=== PATIENT | female | born 1970 | race Caucasian/White ===

== ENCOUNTER → 2017-06-11 09:50 | Outpatient (CLI) | payer OTHER, SELFPAY ==
[2017-06-11 11:48] LABS: Vitamin D,25 Hydroxy 35.9 ng/mL (29.95-100.01)
[2017-06-11 12:15] LABS: Thyroid Stim Hormone (TSH) 1.02 uIU/mL (0.358-3.74)
[2017-06-17 10:22] LABS: HPV APTIMA, High Risk Negative (Negative)
== END ==
PROVIDERS: Family Provider Nurse Practitioner; PCP Nurse Practitioner; Visit Provider Nurse Practitioner Women's Health
DX: R53.83 Other fatigue (principal); Z12.4 Encounter for screening for malignant neoplasm of cervix
CPT/HCPCS: 36415; 82306; 84443; 88175; G0145

== ENCOUNTER → 2017-06-23 16:14 | Outpatient (CLI) | payer OTHER, SELFPAY ==
--- NOTE | 2017-06-23 16:38 | BI_ITS ---
MAMMOGRAPHY - BILATERAL SCREENING REASON FOR EXAM: Female, 46 years old. Routine annual screening examination. PERTINENT HISTORY: Non-contributory. TECHNIQUE: Digital bilateral breast siobhan (3D mammographic acquisition) in the CC and MLO projections. 2-D mediolateral oblique (MLO) and craniocaudad (CC) views of both breasts were obtained. CAD: Full Field Digital Mammography with Computer Added Detection was performed. COMPARISON: Comparison is made with prior study dated May 18, 2016 and October 30, 2014. FINDINGS: Breast Composition: The breasts are heterogeneously dense, which may obscure small masses. There are no dominant masses or suspicious calcifications. No other significant abnormalities are identified. There has been no significant change since the prior study. BI/SCREENING MAMM (CAD), BILAT IMPRESSION: Stable bilateral screening mammogram. Yearly follow-up mammogram recommended. (A) ASSESSMENT CATEGORY: BIRADS Category 1: Negative. A letter regarding these results will be sent to the patient by the facility within 30 days. Approximately 10% of breast cancers are not detected by mammography. A normal mammogram should not delay biopsy of a clinically suspicious abnormality. [id number] Electronically Signed: Jamal Bruce MD at 8:08 EDT Tel [phone], Service support ,
== END ==
PROVIDERS: Family Provider Nurse Practitioner; PCP Nurse Practitioner; Visit Provider Nurse Practitioner Women's Health
DX: Z12.31 Encounter for screening mammogram for malignant neoplasm of breast (principal)
CPT/HCPCS: 77063; 77067

== ENCOUNTER 2017-12-28 16:45 | Outpatient (RCR) | payer OTHER, SELFPAY ==
--- NOTE | 2017-04-07 06:42 | MASS.EVAL ---
Massage Therapy Evaluation: Evaluatoin Date:04/06/17 The patient is a 46 y.o. female, referred to [facility] by Hilary Pandya, with a diagnosis of right trapezius strain. She presents today with the symptoms of tension and aching through out the upper body, especially the shoulder and interscapular area. She reports no limitations to activities of daily living. She describes the symptoms as tension and aching. They have been present for many years and are fairly constant. She attributes the symptoms to the physical and stressful nature of her job. Her goals for treatment are to reduce muscle tension and promote relaxation. Her first treatment consisted of a one hour deep tissue massage to the full body focusing on her neck and shoulders. I found significant tension bilaterally through the upper trapezius, rhomboids and paraspinals with the left side being worse than than the right. The patient responded well to treatment with a significant decrease in muscle tension. I plan on seeing her one time a month for a total of ten one hour sessions.
--- NOTE | 2017-07-13 16:45 | DT_ITS ---
This patient was seen during an EMR downtime July 12, 2017 - July 19, 2017. This patient may have a combination of paper and electronic documentation or all paper documentation. All documentation is viewable within the e-chart portion of [facility] for each patient visit.
--- NOTE | 2018-01-27 13:04 | MASS.DISCH ---
Massage Therapy Discharge Summary: Initial Evaluation: 04/06/2017 Diagnosis: Right trapezius strain No. of Visits: Date of last visit: 12/28/2017 Goals: Decreased trapezius pain Decreased stress This patient is being discharged from our care at the [facility]. Thank you, Lyla Waller LMT
== END 2017-12-28 19:00 | disposition home or self-care (01) ==
LOC: MASS 16:45
PROVIDERS: Family Provider Nurse Practitioner; PCP Nurse Practitioner; Visit Provider Nurse Practitioner
DX: S46.811D Strain of other muscles, fascia and tendons at shoulder and upper arm level, right arm, subsequent encounter (principal)
CPT/HCPCS: 97124

== ENCOUNTER → 2018-07-06 | Outpatient (CLI) | payer OTHER, SELFPAY ==
[2018-07-01 16:14] VITALS: BMI 27.8
--- NOTE | 2018-07-06 14:14 | US_ITS ---
STUDY: ULTRASOUND OF THE FEMALE PELVIS - COMPLETE REASON FOR EXAM: Female, 47 years old. Abnormal bleeding LMP: 06/20/2018 TECHNIQUE: Transabdominal and Transvaginal TECHNICAL QUALITY: Adequate. COMPARISON: None. FINDINGS: The uterus is anteverted and is in a midline position. The uterus measures 8.8 x 6.3 x 4.3 cm. Normal uterine cervix. The endometrium measures 4 mm in thickness, and is hyperechoic. There is no demonstrated endometrial mass. There is no demonstrated myometrial mass. I.U.D. - The patient does not have an I.U.D. The right ovary is visualized. The right ovary measures 2.5 x 1.4 x 1.0 cm. There is no right ovarian cyst or ovarian mass. There is no visualized right adnexal mass or complex lesion. There is normal arterial and normal venous vascularity. The left ovary is visualized. The left ovary measures 1.6 x 2.0 x 1.5 cm. There is no left ovarian cyst or ovarian mass. There is no visualized left adnexal mass or complex lesion. There is normal arterial and normal venous vascularity. There is no fluid in the cul-de-sac. The pre void volume of the bladder was 411.7 ml. The post void volume of the bladder was less than 10 ml. US/Transvaginal Non- IMPRESSION: No suspicious sonographic findings Electronically Signed: Wade Quintero MD at 19:55 EDT , Service support ,
--- NOTE | 2018-07-06 14:14 | US_ITS ---
STUDY: ULTRASOUND OF THE FEMALE PELVIS - COMPLETE REASON FOR EXAM: Female, 47 years old. Abnormal bleeding LMP: 06/20/2018 TECHNIQUE: Transabdominal and Transvaginal TECHNICAL QUALITY: Adequate. COMPARISON: None. FINDINGS: The uterus is anteverted and is in a midline position. The uterus measures 8.8 x 6.3 x 4.3 cm. Normal uterine cervix. The endometrium measures 4 mm in thickness, and is hyperechoic. There is no demonstrated endometrial mass. There is no demonstrated myometrial mass. I.U.D. - The patient does not have an I.U.D. The right ovary is visualized. The right ovary measures 2.5 x 1.4 x 1.0 cm. There is no right ovarian cyst or ovarian mass. There is no visualized right adnexal mass or complex lesion. There is normal arterial and normal venous vascularity. The left ovary is visualized. The left ovary measures 1.6 x 2.0 x 1.5 cm. There is no left ovarian cyst or ovarian mass. There is no visualized left adnexal mass or complex lesion. There is normal arterial and normal venous vascularity. There is no fluid in the cul-de-sac. The pre void volume of the bladder was 411.7 ml. The post void volume of the bladder was less than 10 ml. US/Pelvic (Non ) IMPRESSION: No suspicious sonographic findings Electronically Signed: Wade Quintero MD at 19:55 EDT , Service support ,
== END | disposition home or self-care (01) ==
LOC: US 14:14
PROVIDERS: Family Provider Nurse Practitioner; PCP Nurse Practitioner; Referring Provider Nurse Practitioner Women's Health; Visit Provider Nurse Practitioner Women's Health
DX: N92.1 Excessive and frequent menstruation with irregular cycle (principal)
CPT/HCPCS: 76830; 76856; 93976

== ENCOUNTER → 2018-07-07 | Outpatient (CLI) | payer OTHER, SELFPAY ==
--- NOTE | 2018-07-07 | EMB_PTH ---
PATIENT: BALDOMERO HAMEED LOC: [facility] U#:[id number] AGE/SX: 47/F ROOM: RE07/07/[address]: DALTON Oliveira : 1970 BED: DIS: 07/07/2018 SPEC #: [id number] RECD: 07/07/18 16:34 STATUS: GLORIA DIANA #: [id number] GEO: 07/07/18 00:[address]: Екатерина Short NP DEPT: SURGICAL PATHOLOGY RECD BY: Abbi Catherine ENTERED: 07/08/18 16:00 SP TYPE: ENDOM BX/C FABBY DR: DALTON Crowley Tissues: Endometrium, NOS Procedures: Surgery Specimen Level IV HEADER OPERATION: Endometrial biopsy PRE-OP DIAGNOSIS: Abnormal uterine bleeding TISSUE SUBMITTED: Endometrial biopsy MICROSCOPIC DIAGNOSIS Endometrium, biopsy: Scant strips of benign superficial glandular mucosa. See comment. AM:efrain 07/11/18 COMMENT The specimen primarily consists of mucous. Clinical correlation is suggested. Rare benign endocervical mucosal-lined tissue is present. Clinical correlation is suggested. MICROSCOPIC DESCRIPTION Slides are reviewed. GROSS DESCRIPTION Received is one container labeled with the patient's name and not further designated. The specimen consists of multiple irregular fragments of light pink-delaney soft tissue that in aggregate measure 2 x 2 x 0.2 cm. The specimen is totally submitted in one cassette. / AM:efrain 07/08/18 TC:5 CPT: 85204
[2018-07-07 15:56] VITALS: BMI 27.7
== END | disposition home or self-care (01) ==
LOC: LABSPEC 16:41
PROVIDERS: Family Provider Nurse Practitioner; PCP Nurse Practitioner; Referring Provider Nurse Practitioner Women's Health; Visit Provider Nurse Practitioner Women's Health
DX: N95.9 Unspecified menopausal and perimenopausal disorder (principal)
CPT/HCPCS: 88305

== ENCOUNTER 2019-01-24 16:45 | Outpatient (RCR) | payer OTHER, SELFPAY ==
--- NOTE | 2018-04-27 06:48 | MASS.EVAL ---
Massage Therapy Evaluation: Initial Evaluation Date: 04/26/2018 /Age: 11 1970, 47 Diagnosis: Right Trapezius Strain Medications: None Goals: Decrease muscle spasms Decrease muscle tension and pain Decrease stress Assessment: Holly is an excellent candidate for massage therapy. She has had significant reduction of symptoms using massage in the past. Plan: The plan of care was reviewed with the patient she is to be seen one time per month or PRN for a total of 10 visits. Lyla Waller LMT
== END 2019-01-24 19:00 | disposition home or self-care (01) ==
LOC: MASS 16:45
PROVIDERS: Family Provider Nurse Practitioner Women's Health; PCP Nurse Practitioner Women's Health; Referring Provider Nurse Practitioner; Visit Provider Nurse Practitioner
DX: S46.811D Strain of other muscles, fascia and tendons at shoulder and upper arm level, right arm, subsequent encounter (principal)
CPT/HCPCS: 97124

== ENCOUNTER → 2019-02-24 08:47 | Outpatient (CLI) | payer OTHER, SELFPAY ==
[2019-02-24 08:13] VITALS: BMI 27.7
--- NOTE | 2019-02-24 09:00 | RAD_ITS ---
STUDY: X-RAY - CERVICAL SPINE REASON FOR EXAM: Female, 48 years old. neck pain and spasms for 6 months; no known injury TECHNIQUE: 3 view(s) of the cervical spine were obtained. COMPARISON: None FINDINGS: Normal anterior atlantoaxial articulation. Normal odontoid process. Normal cervical lordosis. Normal vertebral bodies and endplates. Normal disc space heights. Normal visualized intervertebral neuroforamina. The soft tissue structures are unremarkable. RAD/Cerv Spine 2 or 3 Views IMPRESSION: Normal x-ray examination of the visualized cervical spine. Electronically Signed: Adrian Maravilla MD at 0:01 EST , Service support ,
== END ==
PROVIDERS: PCP Internal Medicine; Referring Provider Nurse Practitioner Family; Visit Provider Nurse Practitioner Family
DX: M54.2 Cervicalgia (principal); M62.838 Other muscle spasm
CPT/HCPCS: 72040

== ENCOUNTER → 2019-08-08 08:38 | Outpatient (CLI) | payer OTHER, SELFPAY ==
[2019-08-08 08:34] VITALS: BMI 28.6
[2019-08-08 09:49] LABS: Follicle Stimulating Hormone 26.4 mIU/mL
== END ==
PROVIDERS: PCP Internal Medicine; Referring Provider Nurse Practitioner Women's Health; Visit Provider Nurse Practitioner Women's Health
DX: N95.1 Menopausal and female climacteric states (principal)
CPT/HCPCS: 36415; 83001

== ENCOUNTER 2019-10-25 11:07 | Outpatient (RCR) | payer OTHER, SELFPAY ==
[2019-09-14 15:41] VITALS: BMI 28.6
== END 2019-11-08 23:59 ==
LOC: EMPH 11:07
PROVIDERS: PCP Internal Medicine; Visit Provider Family Medicine Geriatric Medicine
DX: Z11.59 Encounter for screening for other viral diseases (principal)
CPT/HCPCS: 87635; U0003

== ENCOUNTER → 2019-12-05 12:03 | Outpatient (CLI) | payer OTHER, SELFPAY ==
[2019-08-08 08:34] VITALS: BMI 28.6
[2019-11-07 14:17] VITALS: BMI 28.6
--- NOTE | 2019-12-05 12:03 | BI_ITS ---
MAMMOGRAPHY - BILATERAL SCREENING REASON FOR EXAM: Female, 48 years old. Routine annual screening examination. PERTINENT HISTORY: Non-contributory. TECHNIQUE: Digital bilateral breast bhavna (3D mammographic acquisition) in the CC and MLO projections. 2-D mediolateral oblique (MLO) and craniocaudad (CC) views of both breasts were obtained. CAD: Full Field Digital Mammography with Computer Added Detection was performed. COMPARISON: Comparison is made with prior study dated 06/23/2017 and 05/18/2016. FINDINGS: Breast Composition: The breasts are heterogeneously dense, which may obscure small masses. There are no dominant masses or suspicious calcifications. No other significant abnormalities are identified. There has been no significant change since the prior study. BI/SCREEN MAMM (CAD) W/BHAVNA BILAT IMPRESSION: Stable bilateral screening mammogram. Yearly follow-up mammogram recommended. (A) ASSESSMENT CATEGORY: BIRADS Category 1: Negative. A letter regarding these results will be sent to the patient by the facility within 30 days. Approximately 10% of breast cancers are not detected by mammography. A normal mammogram should not delay biopsy of a clinically suspicious abnormality. [id number] Electronically Signed: Jamal Bruce, at 13:21 EDT , Service support ,
== END ==
PROVIDERS: PCP Internal Medicine; Referring Provider Nurse Practitioner Women's Health; Visit Provider Nurse Practitioner Women's Health
DX: Z12.31 Encounter for screening mammogram for malignant neoplasm of breast (principal)
CPT/HCPCS: 77063; 77067

== ENCOUNTER 2019-12-07 11:38 | Outpatient (RCR) | payer OTHER, SELFPAY ==
[2019-11-07 14:17] VITALS: BMI 28.6
== END 2019-12-09 23:59 ==
LOC: EMPH 11:38
PROVIDERS: PCP Internal Medicine; Visit Provider Family Medicine Geriatric Medicine
DX: Z03.818 Encounter for observation for suspected exposure to other biological agents ruled out (principal)
CPT/HCPCS: 87426

== ENCOUNTER 2020-01-03 10:08 | Outpatient (RCR) | payer OTHER, SELFPAY ==
[2019-11-07 14:17] VITALS: BMI 28.6
== END 2020-01-08 23:59 ==
LOC: EMPH 10:08
PROVIDERS: PCP Internal Medicine; Visit Provider Family Medicine Geriatric Medicine
DX: Z03.818 Encounter for observation for suspected exposure to other biological agents ruled out (principal)
CPT/HCPCS: 87426

== ENCOUNTER 2020-01-23 16:45 | Outpatient (RCR) | payer OTHER, SELFPAY ==
[2018-09-15 15:58] VITALS: BMI 27.7
[2019-02-24 08:13] VITALS: BMI 27.7
--- NOTE | 2019-03-15 13:29 | MASS.EVAL ---
Massage Therapy Evaluation: Initial Evaluation Date: 03/14/2019 /Age: 11 1970, 48 Diagnosis: Cervicalgia Goals: Decrease pain Decrease msucle tension Decrease stress Assessment: Holly is a good candidate for massage. We have had success treating her symptoms in the past. Plan: To be seen one time per month or PRN for a total of 10 one hour sessions.
--- NOTE | 2020-01-25 09:01 | DS.PCM_ITS ---
Massage Therapy Discharge Summary: Initial Evaluation Date: 03/14/2019 Diagnosis: Cervicalgia Muscle Spasm No. of Visits: 6 Date of last visit: 01/23/2020 This patient is being discharged from our care at the [facility]. Thank you, Lyla Waller LMT
== END 2020-01-23 19:00 | disposition home or self-care (01) ==
LOC: MASS 16:45
PROVIDERS: Family Provider Nurse Practitioner Women's Health; PCP Internal Medicine; Referring Provider Nurse Practitioner Family; Visit Provider Nurse Practitioner Family
DX: M54.2 Cervicalgia (principal); M62.838 Other muscle spasm
CPT/HCPCS: 97124

== ENCOUNTER 2020-02-07 14:09 | Outpatient (RCR) | payer OTHER, SELFPAY ==
[2019-11-07 14:17] VITALS: BMI 28.6
== END 2020-02-08 23:59 ==
LOC: EMPH 14:09
PROVIDERS: PCP Internal Medicine; Visit Provider Family Medicine Geriatric Medicine
DX: Z03.818 Encounter for observation for suspected exposure to other biological agents ruled out (principal)
CPT/HCPCS: 87426

== ENCOUNTER 2020-02-17 10:45 | Emergency (ER) | payer OTHER, SELFPAY ==
[2019-11-07 14:17] VITALS: BMI 28.6
[2020-02-17 10:45] VITALS: BP 131/78; PULSE 53; RESP 16; TEMP 36.6; O2SAT 100; BMI 27.3
--- NOTE | 2020-02-17 10:54 | RAD_ITS ---
STUDY: X-RAY - RIGHT WRIST REASON FOR EXAM: Female, 49 years old. working out and fell on wrist today, pain over radius TECHNIQUE: 3 view(s) of the wrist were obtained. COMPARISON: None. FINDINGS: Normal visualized distal radius and ulna. Normal radiocarpal articulation. Normal distal radioulnar articulation. Normal carpal bones. Normal carpal articulations. Normal carpometacarpal articulation of the thumb. Normal second through fifth carpometacarpal articulations. Normal visualized metacarpal bones. The soft tissue structures are unremarkable. RAD/Wrist min 3 Views IMPRESSION: Normal x-ray examination of the wrist. Electronically Signed: Jamaal Tomas MD at 11:15 EST Tel , Service support ,
--- NOTE | 2020-02-17 10:57 | ED.DCSUM_ITS ---
- ER Visit Summary Date of Service: 02/17/20 Chief Complaint: [Injury to right wrist] History of Present Illness: The patient is a 49 F [presents to the emergency department with an injury to the right wrist that occurred this morning. Patient states that she was exercising doing toe taps on a step when the step broke and she fell with her weight onto her right wrist. Patient is right-hand dominant. She denies any other injuries. Patient has no significant medical history. She complains of pain with movement of the wrist and she is noticed some swelling to the wrist. Patient is concerned about fracture of the wrist.] Physical Examination: [Right wrist-patient has diffuse tenderness over the dorsum of the proximal hand carpal bones with some soft tissue swelling. She is got some mild tenderness over the distal radius. She got good range of motion flexion extension of all digits. She is got good range of motion flexion extension of the wrist. No obvious deformity noted. She is neurovascular intact.] Test Results: [3 view x-rays of the right wrist obtained and interpreted by myself initially as subtle nondisplaced distal radius fracture that appears to be intra-articular. Radiology read the images as normal. I discussed with the radiologist the images and he agrees that there are some lucencies that could be consistent with an intra-articular nondisplaced fracture of the distal radius and recommended follow-up x-rays. I discussed case with orthopedics Dr. Spears who recommended a stirrup like splint around the elbow and follow-up with his office.] Emergency Department Course and Treatment: [Patient was placed in an Ortho-Glass stirrup-like splint that wrapped around the elbow to the fingers.] Treatment Plan: Patient does not anything for pain for home. She is advised use ice to the area. She will be given a sling. Patient to follow-up with orthopedics in 3 to 5 days. [] Disposition: [Discharged home in stable condition] Impression: [Right distal radius intra-articular nondisplaced fracture] This note was generated with Media[employer] software. It may contain incorrect words, spelling, and punctuation that were not noted in review of the chart prior to signing ED Disposition - Plan for ED Patient: Referrals: Berto Samson MD [Primary Care Provider] -
--- NOTE | 2020-02-17 11:41 | ED.DEP ---
ED Disposition - Plan for ED Patient: Instructions: ED Colles Fracture No Reduction ... Referrals: Berto Samson MD [Primary Care Provider] - Zander Spears DO [STAFF PHYSICIAN] - 3-5 Days
[2020-02-17 11:51] VITALS: PULSE 62; RESP 17; O2SAT 99
== END 2020-02-17 11:51 | disposition home or self-care (01) ==
LOC: ED 11:39
PROVIDERS: Emergency Provider Emergency Medicine; PCP Internal Medicine
DX: S52.571A Other intraarticular fracture of lower end of right radius, initial encounter for closed fracture (principal); W17.89XA Other fall from one level to another, initial encounter; Y93.A3 Activity, aerobic and step exercise; Y92.9 Unspecified place or not applicable
CPT/HCPCS: 29125; 73110; 99283

== ENCOUNTER → 2020-02-26 08:20 | Outpatient (CLI) | payer OTHER, SELFPAY ==
--- NOTE | 2020-02-26 08:21 | RAD_ITS ---
STUDY: X-RAY - RIGHT WRIST REASON FOR EXAM: Female, 49 years old. Radial fracture. TECHNIQUE: 3 view(s) of the wrist were obtained. COMPARISON: Right wrist, 02/17/2020. FINDINGS: There is limited visualization of the osseous structures due to semiradiopaque cast surrounding the hand and wrist. The radial fracture line is not clearly identified. There is no change in alignment. Soft tissues appear grossly normal. RAD/Wrist min 3 Views IMPRESSION: Limited visualization of the distal radial fracture secondary to artifact from surrounding semiradiopaque cast. There is no change in alignment. Electronically Signed: Iban Clayton DO at 16:54 EST Tel [phone], Service support ,
== END ==
PROVIDERS: PCP Internal Medicine; Referring Provider Orthopaedic Surgery; Visit Provider Orthopaedic Surgery
DX: S52.571A Other intraarticular fracture of lower end of right radius, initial encounter for closed fracture (principal)
CPT/HCPCS: 73110

== ENCOUNTER → 2020-03-04 11:25 | Outpatient (CLI) | payer OTHER, SELFPAY ==
--- NOTE | 2020-03-04 11:27 | RAD_ITS ---
STUDY: X-RAY - RIGHT WRIST REASON FOR EXAM: Female, 49 years old. Right wrist pain. TECHNIQUE: 3 view(s) of the wrist were obtained on 4 images. COMPARISON: 02/17/2020 FINDINGS: Oblique lucency through the distal radius on the ulnar side compatible with nondisplaced fracture. Normal distal radioulnar articulation. Normal carpal bones. Normal carpal articulations. Normal carpometacarpal articulation of the thumb. Normal second through fifth carpometacarpal articulations. Normal visualized metacarpal bones. The soft tissue structures are unremarkable. RAD/Wrist min 3 Views IMPRESSION: Stable nondisplaced fracture of the distal radius. Electronically Signed: Tam Avalos MD at 15:53 EST , Service support ,
== END ==
PROVIDERS: PCP Internal Medicine; Referring Provider Orthopaedic Surgery; Visit Provider Orthopaedic Surgery
DX: S52.501A Unspecified fracture of the lower end of right radius, initial encounter for closed fracture (principal)
CPT/HCPCS: 73110

== ENCOUNTER 2020-03-08 14:12 | Outpatient (RCR) | payer OTHER, SELFPAY ==
[2019-11-07 14:17] VITALS: BMI 28.6
== END 2020-03-10 23:59 ==
LOC: EMPH 14:12
PROVIDERS: PCP Internal Medicine; Visit Provider Family Medicine Geriatric Medicine
DX: Z03.818 Encounter for observation for suspected exposure to other biological agents ruled out (principal)
CPT/HCPCS: 87426

== ENCOUNTER → 2020-03-18 11:47 | Outpatient (CLI) | payer OTHER, SELFPAY ==
--- NOTE | 2020-03-18 11:49 | RAD_ITS ---
STUDY: X-RAY - RIGHT WRIST REASON FOR EXAM: Right distal radial fracture follow-up, right wrist pain. TECHNIQUE: 3 view(s) of the wrist were obtained. COMPARISON: Radiographs 03/04/2020. FINDINGS: There is a nondisplaced fracture of the distal radius with increased sclerosis at the fracture site. Normal radiocarpal articulation. Normal distal radioulnar articulation. Normal carpal bones. Normal carpal articulations. Normal carpometacarpal articulation of the thumb. Normal second through fifth carpometacarpal articulations. Normal visualized metacarpal bones. The soft tissue structures are unremarkable. RAD/Wrist min 3 Views IMPRESSION: Healing nondisplaced fracture of the distal radius. Electronically Signed: Bob Rosas MD at 13:35 EST Tel , Service support ,
== END ==
PROVIDERS: PCP Internal Medicine; Referring Provider Orthopaedic Surgery; Visit Provider Orthopaedic Surgery
DX: S52.501A Unspecified fracture of the lower end of right radius, initial encounter for closed fracture (principal)
CPT/HCPCS: 73110

== ENCOUNTER → 2020-04-01 12:01 | Outpatient (CLI) | payer OTHER, SELFPAY ==
--- NOTE | 2020-04-01 12:02 | RAD_ITS ---
STUDY: X-RAY - RIGHT WRIST REASON FOR EXAM: Follow-up right wrist fracture. TECHNIQUE: 3 view(s) of the wrist were obtained. COMPARISON: Radiographs 03/18/2020. FINDINGS: There is a healed fracture of the distal radius. Normal radiocarpal articulation. Normal distal radioulnar articulation. Normal carpal bones. Normal carpal articulations. Normal carpometacarpal articulation of the thumb. Normal second through fifth carpometacarpal articulations. Normal visualized metacarpal bones. The soft tissue structures are unremarkable. RAD/Wrist min 3 Views IMPRESSION: Healed fracture of the distal radius. Electronically Signed: Bob Rosas MD at 12:48 EST Tel , Service support ,
== END ==
PROVIDERS: PCP Internal Medicine; Referring Provider Orthopaedic Surgery; Visit Provider Orthopaedic Surgery
DX: S52.591D Other fractures of lower end of right radius, subsequent encounter for closed fracture with routine healing (principal)
CPT/HCPCS: 73110

== ENCOUNTER 2020-04-05 09:43 | Outpatient (RCR) | payer OTHER, SELFPAY | END 2020-04-07 23:59 | LOC: EMPH 09:43 | PROVIDERS: PCP Internal Medicine; Referring Provider Family Medicine Geriatric Medicine; Visit Provider Family Medicine Geriatric Medicine | DX: Z03.818 Encounter for observation for suspected exposure to other biological agents ruled out (principal) | CPT/HCPCS: 87426 ==

== ENCOUNTER 2020-04-16 16:00 | Outpatient (RCR) | payer OTHER, SELFPAY ==
[2019-11-07 14:17] VITALS: BMI 28.6
--- NOTE | 2020-04-09 13:42 | HP.OTEVAL ---
Patient's Visit Information BALDOMERO HAMEED is a 49 year old F, referred to Occupational Therapy by Dr. Zander Spears DO, with a diagnosis of Lower end right radius fx. Date of Evaluation: 04/09/20 Occupational Therapist: Aliya Roberson, ALESSANDRA/Minnie, CHT - Subjective This 49 year old female was seen for OT eval with dx of right lower end radius fx. Pt states a step broke and she fell on an out streched hand- states thumb hurt more than wrist- pt states this happened on 02/17/20 and she was casted until on 04/01/20. pt states her wrist is feeling stiff but skin and hand is very sensitive. pt would like to return to her PLOF with ADls and IADls and return to work. - Pain right wrist 1 Pain Intensity Range: 6 - ROM Wrist: right 50/ 25 left 80/75 CMC: right 5 left 15 MP: right 50 left 65 IP: right 60 left 80 Opposition: right 7 left 10 - Strength Molded Goods Controls Operator: right 15# left 65# Lateral Pinch: rigth 6# left 12# Tripod Pinch: right 8# left 16# - Sensation Thumb: right 2.36 left 2.83 Index: right 2.36 left 2.83 Middle: right 2.36 left 2.83 Ring: right 2.36 left 2.83 Little: right 2.36 left 2.83 - Quick DASH-Disab of Arm,Shoulder& Hand Quick DASH Score: 70.0000 - Hand/Wrist Evaluation Total Score of Pain & Functional Sections: 58 - Goals Goal:: pt will demo a increase in right manager concrete strength to 50# or greater to increase pts ind with ADls and IADls by d/c. pt will demo a increase in right lateral and tripod pinch by 4# to increase pts ind with ADLs and IADLs by d/c Goal:: pt will demo right wrist ROM 70/65 or greater to return pt to PLOF and ind. with ADLS and IADLs by d/c Goal:: pt will report a decrease in right wirst pain no greater than 1/10 with use of right hand with ADLs and IADLs Goal:: pt will demo a reduction in monofilament testing to 2.83 indicating normal sensation by d/c. pt will report the ability to marysol. long sleeves to ind. wear clothing by d.c - Rehabilitation General Assessment: pt currently 7 weeks and 2 days from a right lwer end radius fx. pt had cast removed on 04/01/20 and currently demo with limited right wrist ROM, strength and hypersensitivity of right hand. This limits pts IND. with ADls and IADLs. Pt would benefit from skilled OT services 1-2x week for 6 weeks to return pt to PLOF. Today therapist ed. pt on light PROM of wrist flex/ext and sensory re-ed/ desensitization. pt demo understanding and agree to POC. Rehabilitation Potential: Good - Anticipated Interventions A/AAROM/PROM, Strengthening, Triggerpoint Release, Desensitization, Sensory Retraining, Modalities, Orthoses, Joint Protection/Energy Conservation, Ergonomic Education - Visit Plan Frequency: 1-2x /Week Duration: 6 Weeks General Plan: adding in Wt.B as tolerated. texture differances between bilateral hands TEXT: Thank you for the opportunity to evaluate your patient. For Medicare and Medicare HMO plans, please review the plan of care and approve it. It will need to be FAXED BACK to us at [phone] for Medicare purposes. Please let me know if there are questions or concerns regarding this plan of care. Physician Signature: Date:
--- NOTE | 2020-09-30 12:17 | HP.OTDCSUM_ITS ---
It has been my pleasure to treat BALDOMERO HAEMED under orders from Dr. Zander Spears DO, for the diagnosis of Lower end right radius fx for a total of 2 visit(s). Please see the following information for a summary of their discharge status. Patient Goals: Regain Mobility, Regain Strength, Use Hand/Wrist/Arm Normally Again, Decrease Sensitivity Goal:: pt will demo a increase in right funding analyst strength to 50# or greater to increase pts ind with ADls and IADls by d/c. pt will demo a increase in right lateral and tripod pinch by 4# to increase pts ind with ADLs and IADLs by d/c Goal:: pt will demo right wrist ROM 70/65 or greater to return pt to PLOF and ind. with ADLS and IADLs by d/c Goal:: pt will report a decrease in right wirst pain no greater than 1/10 with use of right hand with ADLs and IADLs Goal:: pt will demo a reduction in monofilament testing to 2.83 indicating normal sensation by d/c. pt will report the ability to marysol. long sleeves to ind. wear clothing by d.c Plan: cont with trigger point. may try US. traction If there are questions or concerns regarding this patient's occupational therapy, please fell free to call me at [phone]. Thank you for the referral of this patient. Sincerely, Aliya Roberson, OTR/L, CHT
== END 2020-04-16 19:00 | disposition home or self-care (01) ==
LOC: OT 16:00
PROVIDERS: PCP Internal Medicine; Referring Provider Orthopaedic Surgery; Visit Provider Orthopaedic Surgery
DX: S52.501D Unspecified fracture of the lower end of right radius, subsequent encounter for closed fracture with routine healing (principal)
CPT/HCPCS: 97140; 97165; 97166

== ENCOUNTER 2020-05-01 09:41 | Outpatient (RCR) | payer OTHER, SELFPAY ==
[2019-11-07 14:17] VITALS: BMI 28.6
== END 2020-05-08 23:59 ==
LOC: EMPH 09:41
PROVIDERS: PCP Internal Medicine; Referring Provider Family Medicine Geriatric Medicine; Visit Provider Family Medicine Geriatric Medicine
DX: Z03.818 Encounter for observation for suspected exposure to other biological agents ruled out (principal)
CPT/HCPCS: 87426

== ENCOUNTER → 2020-05-22 17:31 | Outpatient (CLI) | payer OTHER, SELFPAY ==
[2020-05-09 15:29] VITALS: BMI 28.9
--- NOTE | 2020-05-22 17:10 | CT_ITS ---
STUDY: CT SOFT TISSUE NECK WITH CONTRAST REASON FOR EXAM: Female, 49 years old. Right sided neck swelling RADIATION DOSAGE (If Supplied By Facility): CTDIvol = ( 17.32 ) mGy, DLP = ( 571.06 ) mGycm TECHNIQUE: The patient was scanned in a multi-detector CT scanner. High resolution transaxial imaging was performed following intravenous administration of IV 100mL Isovue-300. Sagittal and coronal images were reconstructed. Individualized dose optimization techniques were used for this CT. COMPARISON: None. FINDINGS: Normal bilateral parotid glands. Normal bilateral muck miner blasting spaces. Normal bilateral parapharyngeal spaces. Normal bilateral carotid spaces. Normal bilateral sublingual and submandibular glands and spaces. Normal visualized nasopharynx. Normal retropharyngeal space. Normal perivertebral space. Normal visualized bilateral faucial tonsils. The visualized tongue, tongue base and oropharynx are normal. The visualized cervical lymph nodes (levels I-) are within normal size limits, and maintain normal morphology. There is no demonstrated solid or cystic mass lesion. There is no abnormal contrast enhancement. Normal epiglottis, bilateral vallecula and hypopharynx. The pre-epiglottic and paraglottic adipose spaces are normal. Normal visualized bilateral piriform sinuses, aryepiglottic folds, vocal cords, and arytenoid-cricoid articulations. Normal subglottic trachea. Normal bilateral lobes of the thyroid gland. Normal visualized pulmonary apices. Normal visualized paranasal sinuses. Normal visualized cervical spine. CT/Soft Tissue Neck WITH Contrast IMPRESSION: Normal enhanced CT examination of the soft tissues of the neck. Electronically Signed: Jamaal Tomas MD at 9:55 EDT Tel , Service support ,
== END ==
PROVIDERS: PCP Internal Medicine; Referring Provider Internal Medicine; Visit Provider Internal Medicine
DX: R22.1 Localized swelling, mass and lump, neck (principal)
CPT/HCPCS: 70491; Q9967; A4216

== ENCOUNTER 2020-06-07 09:48 | Outpatient (RCR) | payer OTHER, SELFPAY ==
[2020-05-09 15:29] VITALS: BMI 28.9
== END 2020-06-07 23:59 ==
LOC: EMPH 09:48
PROVIDERS: PCP Internal Medicine; Referring Provider Family Medicine Geriatric Medicine; Visit Provider Family Medicine Geriatric Medicine
DX: Z03.818 Encounter for observation for suspected exposure to other biological agents ruled out (principal)
CPT/HCPCS: 87426

== ENCOUNTER → 2020-06-13 | Outpatient (CLI) | payer OTHER, SELFPAY ==
[2020-06-13 12:50] VITALS: BMI 27.7
--- NOTE | 2020-06-13 13:00 | LES_PTH ---
PATIENT: BALDOMERO HAMEED LOC: [facility] U#:[id number] AGE/SX: 49/F ROOM: RE06/13/[address]: Dr. Parker Dumont MD : 1970 BED: DIS: 06/13/2020 SPEC #: [id number] RECD: 06/13/20 14:28 STATUS: GLORIA REQ #: [id number] GEO: 06/13/20 13:[address]: Parker Dumont DEPT: SURGICAL PATHOLOGY RECD BY: Nena Vilchis ENTERED: 06/14/20 09:50 SP TYPE: Lesion OTHR DR: Dr. Berto Samson MD Tissues: Clavicle, NOS Procedures: Surgery Specimen Level III HEADER OPERATION: Excision right clavicular mass PRE-OP DIAGNOSIS: Right clavicular mass TISSUE SUBMITTED: Right clavicular mass MICROSCOPIC DIAGNOSIS Right clavicular mass, excision: Mature adipose tissue, consistent with lipoma. SJ:efrain 06/17/2020 MICROSCOPIC DESCRIPTION Slides are reviewed. GROSS DESCRIPTION Received in fixative is one container labeled with the patient's name and designated right clavicular mass. The specimen consists of an irregular piece of adipose tissue measuring 5 x 4 x 2 cm. The external surface is inked. Sections reveal yellow adipose cut surfaces without areas of hemorrhage, necrosis or cystic degeneration. Ethanol Maintenance Mechanic sections are submitted in three cassettes. / MIKEY:efrain 06/14/20 TC:1 CPT: 27730
== END | disposition home or self-care (01) ==
LOC: LABSPEC 14:36
PROVIDERS: PCP Internal Medicine; Referring Provider Surgery; Visit Provider Surgery
DX: R22.2 Localized swelling, mass and lump, trunk (principal)
CPT/HCPCS: 88304

== ENCOUNTER 2020-08-06 11:33 | Outpatient (RCR) | payer OTHER, SELFPAY ==
[2020-05-28 15:28] VITALS: BMI 27.7
[2020-06-13 12:50] VITALS: BMI 27.7
== END 2020-08-07 23:59 ==
LOC: EMPH 11:33
PROVIDERS: PCP Internal Medicine; Referring Provider Family Medicine Geriatric Medicine; Visit Provider Family Medicine Geriatric Medicine
DX: Z03.818 Encounter for observation for suspected exposure to other biological agents ruled out (principal)
CPT/HCPCS: 87426

== ENCOUNTER → 2020-09-02 07:28 | Outpatient (CLI) | payer OTHER, SELFPAY ==
[2020-08-29 15:35] VITALS: BMI 27.7
[2020-09-02 08:50] LABS: Vitamin D,25 Hydroxy 74.3 ng/mL
[2020-09-02 08:59] LABS: Thyroid Stim Hormone (TSH) 1.43 uIU/mL (0.358-3.74)
== END ==
PROVIDERS: PCP Internal Medicine; Referring Provider Nurse Practitioner Women's Health; Visit Provider Nurse Practitioner Women's Health
DX: L65.9 Nonscarring hair loss, unspecified (principal); Z13.29 Encounter for screening for other suspected endocrine disorder; Z13.21 Encounter for screening for nutritional disorder
CPT/HCPCS: 36415; 82306; 84443

== ENCOUNTER 2020-10-08 08:20 | Outpatient (RCR) | payer OTHER, SELFPAY ==
[2020-06-13 12:50] VITALS: BMI 27.7
== END 2020-10-08 23:59 ==
LOC: EMPH 08:20
PROVIDERS: PCP Internal Medicine; Referring Provider Family Medicine Geriatric Medicine; Visit Provider Family Medicine Geriatric Medicine
DX: Z03.818 Encounter for observation for suspected exposure to other biological agents ruled out (principal)
CPT/HCPCS: 87426

== ENCOUNTER 2020-10-21 09:30 | Outpatient (RCR) | payer OTHER, SELFPAY ==
[2020-10-09 00:14] VITALS: BMI 27.7
== END 2020-11-07 23:59 ==
LOC: EMPH 09:30
PROVIDERS: PCP Internal Medicine; Referring Provider Family Medicine Geriatric Medicine; Visit Provider Family Medicine Geriatric Medicine
DX: Z03.818 Encounter for observation for suspected exposure to other biological agents ruled out (principal)
CPT/HCPCS: 87426

== ENCOUNTER 2020-12-10 14:48 | Outpatient (RCR) | payer OTHER, SELFPAY | END 2021-01-07 23:59 | LOC: EMPH 14:48 | PROVIDERS: PCP Internal Medicine; Referring Provider Family Medicine Geriatric Medicine; Visit Provider Family Medicine Geriatric Medicine | DX: Z03.818 Encounter for observation for suspected exposure to other biological agents ruled out (principal) | CPT/HCPCS: 87426 ==

== ENCOUNTER → 2020-12-31 15:25 | Outpatient (CLI) | payer OTHER, SELFPAY ==
--- NOTE | 2020-12-31 15:56 | MRI_ITS ---
MR Pelvis Female WO/W Contrast Indication: 50 years old Female presenting with URETHRAL DIVERTICULUM. Technique: MR of the pelvis without and with IV contrast. Field Strength: 1.5 Kelsey. Contrast: A total of 16 cc IV Dotarem gadolinium is administered for the study. Comparison: None. Findings: Soft tissues of the pelvis are normal. There is no urethral diverticulum. However, please note that a diverticulum that has emptied out of fluid and collapsed would not be detectable on a static exam. There are no periurethral lesions. Bladder neck and bladder are normal. Vagina, rectum, cervix are normal. Uterus is suboptimally imaged. There is a probable 2.5 cm left ovarian unerupted or hemorrhagic follicle. MRI/Pelvis W/WO Contrast IMPRESSION: 1. Unremarkable female pelvis. 2. No distended urethral diverticulum. An empty collapsed diverticulum is not likely to be seen with MR. Electronically Signed: Lakshmi Flynn MD at 22:21 EST Tel , Service support ,
== END ==
PROVIDERS: PCP Internal Medicine; Visit Provider Urology
DX: N36.1 Urethral diverticulum (principal)
CPT/HCPCS: 72197; A9575

== ENCOUNTER 2021-02-04 16:30 | Outpatient (RCR) | payer OTHER, SELFPAY ==
[2019-11-07 14:17] VITALS: BMI 28.6
--- NOTE | 2020-03-28 15:39 | MASS.EVAL ---
Massage Therapy Evaluation: Initial Evaluation Date: 03/28/2020 /Age: 11 1970, 49 Diagnosis: Cervicalgia Goals: Decrease muscle tension Decrease stress Assessment: Holly is a good candidate for massage at this time. We have had success treating her symptoms in the past. Plan: To be seen one time per month or PRN for a total of 10 one hour sessions.
--- NOTE | 2021-02-04 17:38 | DS.PCM_ITS ---
Massage Therapy Discharge Summary: Initial Evaluation Date: 03/28/20 Diagnosis: Cervicalgia No. of Visits: 9 Date of last visit: 02/04/21 This patient is being discharged from our care at the [facility]. Thank you, Lyla Waller LMT
== END 2021-02-04 19:00 | disposition home or self-care (01) ==
LOC: MASS 16:30
PROVIDERS: PCP Internal Medicine; Referring Provider Nurse Practitioner Family; Visit Provider Nurse Practitioner Family
DX: M54.2 Cervicalgia (principal)
CPT/HCPCS: 87426; 97124

== ENCOUNTER 2021-02-06 10:13 | Outpatient (RCR) | payer OTHER, SELFPAY | END 2021-02-07 23:59 | LOC: EMPH 10:13 | PROVIDERS: PCP Internal Medicine; Referring Provider Family Medicine Geriatric Medicine; Visit Provider Family Medicine Geriatric Medicine | DX: Z03.818 Encounter for observation for suspected exposure to other biological agents ruled out (principal) | CPT/HCPCS: 87426; 87635; U0003; U0005 ==

== ENCOUNTER 2021-03-03 15:00 | Outpatient (CLI) | payer OTHER, SELFPAY ==
[2021-03-03 12:02] LABS: Absolute Lymphocyte Count 1.91 X10^3/uL (0.83-4.51); Absolute Neutrophil Count 3.4 X10^3/uL (2.0-7.7); Basophil# 0.06 X10^3/uL; Eosinophil# 0.15 X10^3/uL; Eosinophils% 2.6 % (0-5); Hematocrit 38.1 % (37-47); Hemoglobin 12.6 g/dL (12.0-15.0); Lymphocyte # 1.91 X10^3/ul (0.83-4.51); Lymphocyte % 32.6 % (19-41); Mean Corp Hgb Conc 33.1 g/dL (32-36); Mean Corpuscular Hgb 30.4 pg (27.0-32.0); Mean Platelet Vol. 10.2 fl (6.2-12.0); Monocyte# 0.31 X10^3/uL; Monocyte% 5.3 % (0-10); NRBC Flagged by Analyzer 0 % (0-5); Neutrophil # 3.41 X10^3/uL (2.7-7.7); Neutrophil % 58.2 % (47-70); Platelet Count 252 K/mm3 (150-450); RBC Distribution Width CV 12.7 % (11.6-14.6); Red Blood Count 4.14 M/mm3 (4.2-5.4); White Blood Count 5.9 K/mm3 (4.4-11.0)
[2021-03-03 12:39] LABS: Progesterone Level 0.31 ng/mL (See Comment); Vitamin B12 846 pg/mL (211-911)
[2021-03-03 13:20] LABS: ALB/GLOB Ratio 1.1 RATIO (0.9-2.4); AST(SGOT) 20 U/L (15-37); Alanine Aminotransfer ALT/SGPT 28 U/L (13-56); Albumin, Serum 3.6 g/dL (3.2-5.0); Alkaline Phosphatase 77 U/L (45-117); Anion Gap 6 (5-15); BUN 10 mg/dL (7-18); BUN/Creat Ratio 14.9 RATIO (10-20); Calcium,Total 8.9 mg/dL (8.5-10.1); Chloride 105 mmol/L (98-107); Creatinine, Serum 0.67 mg/dL (0.55-1.02); EST Glomerular Filtration Rate 98 mL/min (>60); Est Glom Filt Rate - Afr Amer 119 mL/min (>60); Estradiol < 11.0 pg/mL; Free T3 2.6 pg/mL (2.18-3.98); Globulin 3.4 g/dL (2.2-4.2); Glucose 87 mg/dL (74-106); Potassium 3.7 mmol/L (3.5-5.1); Sodium Level 139 mmol/L (136-145); Thyroid Stim Hormone (TSH) 1.14 uIU/mL (0.358-3.74)
--- NOTE | 2021-03-03 15:06 | BI_ITS ---
MAMMOGRAPHY - BILATERAL SCREENING REASON FOR EXAM: Female, 50 years old. Routine annual screening examination. PERTINENT HISTORY: Non-contributory. TECHNIQUE: Digital bilateral breast bhavna (3D mammographic acquisition) in the CC and MLO projections. 2-D mediolateral oblique (MLO) and craniocaudad (CC) views of both breasts were obtained. CAD: Full Field Digital Mammography with Computer Added Detection was performed. COMPARISON: Comparison is made with prior study dated 12/05/2019. FINDINGS: Breast Composition: The breasts are heterogeneously dense, which may obscure small masses. There are no dominant masses or suspicious calcifications. No other significant abnormalities are identified. There has been no significant change since the prior study. BI/SCRN MAMM (CAD)W/BHAVNA BILAT IMPRESSION: Stable bilateral screening mammogram. Yearly follow-up mammogram recommended. (A) ASSESSMENT CATEGORY: BIRADS Category 1: Negative. A letter regarding these results will be sent to the patient by the facility within 30 days. Approximately 10% of breast cancers are not detected by mammography. A normal mammogram should not delay biopsy of a clinically suspicious abnormality. [id number] Electronically Signed: Jamal Bruce MD at 20:30 EST , Service support ,
[2021-03-04 09:24] LABS: DHEA Sulfate 59.1 ug/dL (41.2-243.7)
== END 2021-03-03 23:59 | disposition short-term general hospital (02) ==
PROVIDERS: Specialist; PCP Internal Medicine; Referring Provider Physician Assistant; Visit Provider Physician Assistant
DX: Z12.31 Encounter for screening mammogram for malignant neoplasm of breast (principal); R53.83 Other fatigue; N95.1 Menopausal and female climacteric states; E55.9 Vitamin D deficiency, unspecified
CPT/HCPCS: 36415; 77063; 77067; 80053; 82306; 82607; 82627; 82670; 84144; 84403; 84443; 84481; 85025; 82626

== ENCOUNTER 2021-03-10 08:41 | Outpatient (RCR) | payer OTHER, SELFPAY | END 2021-03-10 23:59 | LOC: EMPH 08:41 | PROVIDERS: PCP Internal Medicine; Referring Provider Family Medicine Geriatric Medicine; Visit Provider Family Medicine Geriatric Medicine | DX: Z03.818 Encounter for observation for suspected exposure to other biological agents ruled out (principal) | CPT/HCPCS: 87426 ==

== ENCOUNTER 2021-04-07 08:36 | Outpatient (RCR) | payer OTHER, SELFPAY | END 2021-04-07 23:59 | LOC: EMPH 08:36 | PROVIDERS: PCP Internal Medicine; Referring Provider Family Medicine Geriatric Medicine; Visit Provider Family Medicine Geriatric Medicine | DX: Z03.818 Encounter for observation for suspected exposure to other biological agents ruled out (principal) | CPT/HCPCS: 87426 ==

== ENCOUNTER 2021-04-08 07:25 | Day surgery (SDC) | payer OTHER, SELFPAY ==
--- NOTE | 2021-04-08 | CYST_PTH ---
PATIENT: BALDOMERO HAMEED LOC: [facility] [place] U#:[id number] AGE/SX: 50/F ROOM: RE04/08/[address]: Dr. Virginia Caba MD : 1970 BED: DIS: 04/08/2021 SPEC #: [id number] RECD: 04/08/21 10:59 STATUS: GLORIA ORTIZ #: [id number] GEO: 04/08/21 00:[address]: Virginia Caba DEPT: SURGICAL PATHOLOGY RECD BY: Paddy Prado ENTERED: 04/08/21 11:00 SP TYPE: Cyst OTHR DR: Dr. Berto Samson MD Tissues: CYST Procedures: Surgery Specimen Level IV HEADER OPERATION: Excision periurethral cyst PRE-OP DIAGNOSIS: Urethral diverticulum, periurethral cyst TISSUE SUBMITTED: Periurethral cyst MICROSCOPIC DIAGNOSIS Periurethral cyst, biopsy: Benign squamous mucosa with associated minimal chronic inflammation. See comment. AM:efrain 04/09/2021 COMMENT The specimen may represent urethral diverticulum/periurethral cyst. Clinical correlation is suggested. Case has been reviewed in consultation with Dr. Gonzalez who concurs with the above diagnosis. IDC:[email or web address] MICROSCOPIC DESCRIPTION Slides are reviewed. GROSS DESCRIPTION Received in fixative is one container labeled with the patient's name and designated periurethral cyst. The specimen consists of a piece of delaney soft tissue measuring 1.2 x 1 x 0.2 cm. The specimen is serially sectioned and submitted entirely in one cassette. / SJ:efrain 04/08/2021 TC:5 CPT: 99006
[2021-04-08 07:53] VITALS: BP 110/72; PULSE 59; RESP 16; TEMP 36.8; O2SAT 100; BMI 27.0
[2021-04-08] MEDS: Lactated Ringers 1,000 ML 15 ML IV (08:01)
[2021-04-08 08:11] LABS: Internal QC Validated? YES +Cl - CLEAR BKGD; Pregnancy, Urine Negative Negative
--- NOTE | 2021-04-08 08:21 | PCM.HP.STD ---
HPI - General HPI Narrative BALDOMERO HAMEED, is a 50 F who presents for excision of a periurethral cyst/urethral diverticulum. [facility] Medical History (Updated 04/08/21 @ 08:[address] Virginia Caba MD) Back pain Bilateral headaches Bladder prolapse Bladder prolapse, female, acquired History of echocardiogram History of stress test Lipoma Migraine headache Other fractures of lower end of right radius, sequela Shortness of breath on exertion subcutaneous mass right clavicular region Urethral diverticulum Wears glasses Home Medications multivitamin 1 tab PO QDAY 06/11/17 [History Last Taken Unknown] calcium carbonate 600 mg calcium (1,500 mg) tablet 600 mg PO DAILY tab 07/06/18 [History Last Taken Unknown] cholecalciferol (vitamin D3) 50 mcg (2,000 unit) capsule 2,000 unit PO DAILY 07/06/18 [History Last Taken Unknown] ibuprofen 600 mg tablet 600 mg PO TID PRN #42 tab 04/10/20 [Rx Last Taken Unknown] Accuqity 1 tab PO DAILY 04/24/20 [History Last Taken Unknown] glucosamine sulfate 500 mg tablet 500 mg PO DAILY 04/24/20 [History Last Taken Unknown] Lactobacillus acidophilus [Probiotic] 10,000 mmu cells PO DAILY 04/04/21 [History Last Taken Unknown] magnesium 250 mg PO DAILY 04/04/21 [History Last Taken Unknown] omega-3 fatty acids [Fish Oil] 1,000 mg PO DAILY 04/04/21 [History Last Taken Unknown] Allergy/AdvReac Type Severity Reaction Status Date / Time cefadroxil Allergy Severe rash Verified 04/08/21 07:52 Penicillins Allergy Severe rash Verified 04/08/21 07:52 Family History Mother Diabetes Hypertension Grandfather CVA (cerebral vascular accident) Diabetes Hypertension Other Alcoholism in family Anxiety Arthritis Heart disease Hyperlipidemia Osteoporosis Surgical History History of wisdom tooth extraction S/P dilation and curettage S/P foot surgery, left Social History Smoking Status: Never smoker alcohol intake: current alcohol intake frequency: holidays/special occasions only substance use type: does not use caffeine: Yes (twice a week) what type of physical activity do you participate in: running, swimming and yoga frequency: 5-6 times per week seatbelt use: always do you feel safe at home: Yes 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 Constitutional Constitutional: Denies chills, fatigue, fever(s), weight gain or weight loss Eyes Eyes: Denies change in vision ENT HEENT: Denies change in voice, rhinorrhea or sinus pain Cardiovascular Cardiovascular: Denies chest pain, dizziness, dyspnea, fatigue, nausea, tachypnea or vomiting Respiratory/Chest Respiratory/Chest: Denies chest congestion, cough or dyspnea Gastrointestinal Gastrointestinal: Denies abdominal pain, nausea or vomiting Genitourinary Genitourinary: Denies dysuria, flank pain, hematuria, itching, urinary frequency or urinary hesitancy Musculoskeletal Musculoskeletal: Reports systems reviewed and no addt'l complaints, except as documented Integumentary Integumentary: Reports systems reviewed and no addt'l complaints, except as documented Neurologic Neurologic: Reports systems reviewed and no addt'l complaints, except as documented Psychiatric Psychiatric: Reports systems reviewed and no addt'l complaints, except as documented Endocrine Endocrinology: Reports systems reviewed and no addt'l complaints, except as documented Hematologic/Lymphatic Hematologic/Lymphatic: Reports systems reviewed and no addt'l complaints, except as documented Allergic/Immunologic Allergic/Immunologic: Reports systems reviewed and no addt'l complaints, except as documented Vital Signs Vital Signs Vital Signs: 04/08/21 07:53 Temperature 98.3 F Temperature Source Temporal Pulse Rate 59 L Respiratory Rate 16 Respiratory Pattern Normal Blood Pressure 110/72 Blood Pressure Mean 84 Blood Pressure Source Monitor Blood Pressure Position Semi-Fowlers Blood Pressure Location Left Arm Pulse Ox 100 Oxygen Delivery Method Room Air Weight Weight: 76 kg Body Mass Index (BMI) 27.0 Physical Exam HEENT normocephalic, head/scalp atraumatic, hearing grossly normal bilaterally, external ears normal and external nose normal Mouth: lips normal Eyes conjunctivae normal and no scleral icterus General Eye: normal appearance of both eyes Neck supple General: trachea midline Lymph Lymphatic: no lymphedema noted Chest inspection of chest normal Chest: symmetrical chest wall rise Resp normal respiratory effort, normal air movement, no retractions and no use of accessory muscles Effort and Inspection: able to speak in complete sentences and symmetric chest movement Cardio regular rate and regular rhythm GI soft to palpation, non-tender and non-distended no CVA tenderness and external exam normal Back/Spine no CVA tenderness Extremity normal to inspection Skin no rashes or lesions noted, no wounds, skin turgor normal, no jaundice, no petechiae and no mottling Neuro oriented x3, CN's II-XII intact bilaterally and moves all extremities Psych mental status grossly normal, thought process normal, cooperative, affect normal and speech normal Results Lab / Micro Data Labs: Laboratory Results - last 24 hr 04/08/21 08:01: Urine Test Negative Assessment & Plan Assessment/Plan (1) Urethral diverticulum: PLAN: Excision of urethral diverticulum with cystoscopy. Informed consent obtained.
[2021-04-08] MEDS: Lidocaine 1% /Epi 1:100 (50ml) 50 ML VIAL (08:26)
--- NOTE | 2021-04-08 08:27 | DCINST_ITS ---
Discharge Instructions Diet Discharge Diet: No restrictions Activity Discharge Activity: May Drive (When not using pain medication) and May Shower May resume sexual activity in: 4-6 weeks Additional Activity Instructions:: No strenuous activity, no tub bathing, no swimming, no hot tubs, no sexual activity Dressing / Incision Call your doctor if your incision/area has: Continuous Slow Oozing, Sudden Increased Bleeding, Increased Pain/ Swelling and Foul Smelling Discharge Call your doctor if you observe: Fever of 101 or Higher, Inability to urinate a nd Inability to have a bowel movement Follow Up Care Please Follow Up With: Virginia Caba MD When: In 2 weeks, call the office for an appointment Test Results: Test results from this visit will be discussed in further detail at your follow-up appointment, if applicable. Discharge Plan Admission Attending Provider: Virginia Caba Primary Care Provider: Berto Samson Discharge Orders/Prescriptions Prescriptions: New oxycodone-acetaminophen [oxycodone-acetaminophen] 1 TABLET tablet 2 tab PO Q8H PRN PRN (Reason: Pain) 7 Days Qty: 20 RF: 0 phenazopyridine [Pyridium] 200 MG tablet 200 mg PO TID PRN PRN (Reason: Bladder Spasms) 7 Days Qty: 30 RF: 0 sulfamethoxazole-trimethoprim [sulfamethoxazole-trimethoprim] 1 TABLET tablet 1 tab PO BID 3 Days Qty: 6 RF: 0 Continued multivitamin tablet 1 tab PO QDAY RF: 0 cholecalciferol (vitamin D3) 2,000 unit capsule 2,000 unit PO DAILY RF: 0 calcium carbonate [Calcium 600] 600 mg calcium (1,500 mg) tablet 600 mg PO DAILY RF: 0 Accuqity 1 tab PO DAILY RF: 0 glucosamine sulfate [Glucosamine] 500 mg tablet 500 mg PO DAILY RF: 0 magnesium 250 mg Tablet 250 mg PO DAILY RF: 0 omega-3 fatty acids Capsule 1,000 mg PO DAILY RF: 0 Probiotic 10 billion cell Capsule 10,000 mmu cells PO DAILY RF: 0 ibuprofen 600 mg tablet 600 mg PO TID PRN (Reason: pain) Qty: 42 RF: 0 Referrals / Follow Up: Berto Samson MD [Primary Care Provider] - Disposition Disposition (needs filled in before D/C Order can be placed): Home, Self Care
--- NOTE | 2021-04-08 08:31 | PCM.OPRPT ---
Problems Associated Problem List Diagnoses (1) Urethral diverticulum: Report of Operation Date of Procedure: 04/08/21 Pre-Operative Diagnosis: Urethral diverticulum Post-Operative Diagnosis: periurethral cyst Surgery/Procedure Performed:: excision periurethral cyst Surgeon: Virginia Caba Type of Anesthesia: General Specimen's removed: periurethral cyst Estimated Blood Loss (mL): 5cc Description of Procedure: The patient is a 50-year-old female with a urethral diverticulum identified on examination in the office. She now presents for definitive surgical excision. Informed consent was obtained. The patient was taken the operating room and placed on the operating room table. Anesthesia monitored the head, neck, airway, IV access and vital signs throughout the case. Once anesthesia was appropriate ministered, the patient was placed into dorsal lithotomy in Trendelenburg position. She was prepped and draped in usual sterile fashion. A 16 Lithuan[place] Richards catheter was inserted to straight drain and the bladder was emptied. The urethral diverticulum was identified and the submucosa overlying the area was injected with 1% lidocaine with epinephrine for hydrostatic dissection and hemostatic control. A U-shaped incision was performed over the area. Sharp and blunt dissection was performed until the cystic area was isolated. It became evident that the cyst was not connected to the urethra. It was removed in its entirety. The tissue base of the lesion brought together using 4-0 Vicryl interrupted suturing. The incision was then closed using running interlocking 2-0 Vicryl suture. The patient tolerated the procedure well without complication. The patient was then awakened and taken to the recovery room in good condition. There were no complications during this procedure. Grafts/Implants Used: None Complications none Admit VTE Documentation VTE Present on Admission: Yes VTE Mechan Device Prophylaxis: SCD's VTE Pharm Prophylaxis ordered?: No Reason prophylaxis not ordered:: Treatment Not Indicated
[2021-04-08] MEDS: Ciprofloxacin 400 MG/200 ML BAG 200 MG IV (08:42)
[2021-04-08 09:32] VITALS: BP 100/65; BP 110/72; PULSE 66; RESP 16; TEMP 36.6; O2SAT 98
[2021-04-08 09:45] VITALS: BP 110/72; BP 97/67; PULSE 58; RESP 16; O2SAT 100
[2021-04-08 10:00] VITALS: BP 110/72; BP 96/71; PULSE 50; RESP 16; TEMP 36.4; O2SAT 100
[2021-04-08 10:59] VITALS: BP 105/64; BP 110/72; PULSE 52; RESP 16; TEMP 36.7; O2SAT 100
== END 2021-04-08 23:59 | disposition home or self-care (01) ==
LOC: SDC 07:27 → AC 07:27
PROVIDERS: Anesthesiology; PCP Internal Medicine; Referring Provider Urology; Visit Provider Urology
PROC: (CPT 51525; principal; 2021-04-08 08:40)
DX: N36.8 Other specified disorders of urethra (principal); N36.1 Urethral diverticulum
CPT/HCPCS: 53230; 00942; 81025; 88304; 88305; J7120; J0744; J2405

== ENCOUNTER → 2021-04-15 11:50 | Outpatient (CLI) | payer OTHER, SELFPAY ==
[2021-04-15 13:09] LABS: Progesterone Level 5.96 ng/mL (See Comment)
== END ==
PROVIDERS: PCP Internal Medicine
DX: N95.1 Menopausal and female climacteric states (principal)
CPT/HCPCS: 36415; 82670; 84144; 84403

== ENCOUNTER → 2021-10-16 | Outpatient (CLI) | payer OTHER, SELFPAY ==
[2021-10-16 08:57] LABS: Estradiol 94.9 pg/mL
[2021-10-16 09:44] LABS: Progesterone Level 10.09 ng/mL (See Comment)
== END | disposition home or self-care (01) ==
PROVIDERS: PCP Internal Medicine
DX: N95.1 Menopausal and female climacteric states (principal)
CPT/HCPCS: 36415; 82670; 84144; 84403

== ENCOUNTER 2022-02-16 09:19 | Day surgery (SDC) | payer OTHER, SELFPAY ==
[2022-02-16] VITALS (7 sets, daily range): BP systolic 89–110; BP diastolic 59–79; PULSE 46–60; RESP 16–17; TEMP 36.4–37.5; O2SAT 99–100; BMI 28.9
--- NOTE | 2022-02-16 09:36 | HP.PCM_ITS ---
HPI - General General Date of Admission: 02/16/22 Date of Service: 02/16/22 Chief Complaint: Screening colonoscopy HPI Narrative BALDOMERO HAMEED, is a 51 F who presents today for her first colonoscopy. She has no significant past medical history. She denies any abdominal pain. Denies any cramping. She denies any blood per rectum. She denies any nausea. She denies any chest pain or shortness of breath. [facility], [facility] Medical History Back pain Bilateral headaches Bladder prolapse Bladder prolapse, female, acquired History of echocardiogram History of stress test Lipoma Migraine headache Other fractures of lower end of right radius, sequela Post-menopausal Shortness of breath on exertion subcutaneous mass right clavicular region Urethral diverticulum Wears glasses Home Medications multivitamin 1 tab PO QDAY 06/11/17 [History Last Taken Unknown] calcium carbonate 600 mg calcium (1,500 mg) tablet (Calcium) 600 mg PO DAILY 07/06/18 [History Last Taken Unknown] cholecalciferol (vitamin D3) 50 mcg (2,000 unit) capsule 2,000 unit PO DAILY 07/06/18 [History Last Taken Unknown] ibuprofen 600 mg tablet 600 mg PO TID PRN pain #42 tabs 04/10/20 [Rx Last Taken Unknown] Accuqity 1 tab PO DAILY 04/24/20 [History Last Taken Unknown] glucosamine sulfate 500 mg tablet (Glucosamine) 500 mg PO DAILY 04/24/20 [History Last Taken Unknown] Lactobacillus acidophilus 10 billion cell capsule (Probiotic) 10,000 mmu cells PO DAILY 04/04/21 [History Last Taken Unknown] magnesium 250 mg tablet 250 mg PO DAILY 04/04/21 [History Last Taken Unknown] omega-3 fatty acids 1,000 mg PO DAILY 04/04/21 [History Last Taken Unknown] estradiol 25 mg implant pellet 25 mg subcut DAILY 11/06/21 [History Last Taken U nknown] progesterone micronized (bulk) 100 % powder 1 ea miscellaneous DAILY 02/11/22 [History Last Taken Unknown] Allergy/AdvReac Type Severity Reaction Status Date / Time cefadroxil Allergy Severe rash Verified 02/11/22 13:41 Penicillins Allergy Severe rash Verified 02/11/22 13:41 Family History Mother Diabetes Hypertension Grandfather CVA (cerebral vascular accident) Diabetes Hypertension Other Alcoholism in family Anxiety Arthritis Heart disease Hyperlipidemia Osteoporosis Surgical History History of wisdom tooth extraction Hx of cystoscopy S/P dilation and curettage S/P foot surgery, left Social History Smoking Status: Never smoker alcohol intake: current alcohol intake frequency: other substance use type: does not use caffeine: Yes (twice a week) what type of physical activity do you participate in: running, swimming and yoga frequency: 5-6 times per week seatbelt use: always do you feel safe at home: Yes 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 Constitutional Constitutional: Denies chills, fatigue, fever(s), weight gain or weight loss Eyes Eyes: Denies change in vision ENT HEENT: Denies change in voice, rhinorrhea or sinus pain Cardiovascular Cardiovascular: Denies chest pain, dizziness, dyspnea, fatigue, nausea, t achypnea or vomiting Respiratory/Chest Respiratory/Chest: Denies chest congestion, cough or dyspnea Gastrointestinal Gastrointestinal: Denies abdominal pain, nausea or vomiting Genitourinary Genitourinary: Denies dysuria, flank pain, hematuria, itching, urinary frequency or urinary hesitancy Musculoskeletal Musculoskeletal: Reports systems reviewed and no addt'l complaints, except as documented Integumentary Integumentary: Reports systems reviewed and no addt'l complaints, except as documented Neurologic Neurologic: Reports systems reviewed and no addt'l complaints, except as documented Psychiatric Psychiatric: Reports systems reviewed and no addt'l complaints, except as documented Endocrine Endocrinology: Reports systems reviewed and no addt'l complaints, except as documented Hematologic/Lymphatic Hematologic/Lymphatic: Reports systems reviewed and no addt'l complaints, except as documented Allergic/Immunologic Allergic/Immunologic: Reports systems reviewed and no addt'l complaints, except as documented Physical Exam HEENT normocephalic, head/scalp atraumatic, hearing grossly normal bilaterally, external ears normal and external nose normal Mouth: lips normal Eyes conjunctivae normal and no scleral icterus General Eye: normal appearance of both eyes Neck supple General: trachea midline Lymph Lymphatic: no lymphedema noted Chest inspection of chest normal Chest: symmetrical chest wall rise Resp normal respiratory effort, normal air movement, no retractions and no use of accessory muscles Effort and Inspection: able to speak in complete sentences and symmetric chest movement Cardio regular rate and regular rhythm GI soft to palpation, non-tender and non-distended no CVA tenderness and external exam normal Back/Spine no CVA tenderness Extremity normal to inspection Skin no rashes or lesions noted, no wounds, skin turgor normal, no jaundice, no petechiae and no mottling Neuro oriented x3, CN's II-XII intact bilaterally and moves all extremities Psych mental status grossly normal, thought process normal, cooperative, affect normal and speech normal Assessment & Plan Assessment/Plan (1) Encounter for screening for malignant neoplasm of colon: PLAN: She will undergo screening colonoscopy. She was explained alternatives, risk, benefits include not withstanding bleeding, infection, sepsis, perforation, need for emergent surgery . She will have an ASA of 1.
[2022-02-16] MEDS: Lactated Ringers 1,000 ML 15 ML IV (09:40)
--- NOTE | 2022-02-16 10:48 | OP.COLON_ITS ---
Patient Name: Holly Rosales Procedure Date: 02/16/2022 10:21 AM Date of : 1970 Age: 51 Procedure: Colonoscopy Indications: Screening for colorectal malignant neoplasm Providers: Tony Tarango DO Medicines: Monitored Anesthesia Care Patient Profile: This is a 51 year old female. Refer to note in patient chart for documentation of history and physical. Last Colonoscopy: none. The patient's first colonoscopy is today. Complications: No immediate complications. Procedure: Pre-Anesthesia Assessment: - Prior to the procedure, a History and Physical was performed, and patient medications and allergies were reviewed. The patient is competent. The risks and benefits of the procedure and the sedation options and risks were discussed with the patient. All questions were answered and informed consent was obtained. Patient identification and proposed procedure were verified by the physician in the pre-procedure area. Mental Status Examination: alert and oriented. Airway Examination: normal oropharyngeal airway and neck mobility. Respiratory Examination: clear to auscultation. CV Examination: normal. Prophylactic Antibiotics: The patient does not require prophylactic antibiotics. Prior Anticoagulants: The patient has taken no previous anticoagulant or antiplatelet agents. After reviewing the risks and benefits, the patient was deemed in satisfactory condition to undergo the procedure. The anesthesia plan was to use monitored anesthesia care (MAC). Immediately prior to administration of medications, the patient was re-assessed for adequacy to receive sedatives. The heart rate, respiratory rate, oxygen saturations, blood pressure, adequacy of pulmonary ventilation, and response to care were monitored throughout the procedure. The physical status of the patient was re-assessed after the procedure. After I obtained informed consent, the scope was passed under direct vision. Throughout the procedure, the patient's blood pressure, pulse, and oxygen saturations were monitored continuously. The colonoscope was introduced through the anus and advanced to the cecum, identified by the appendiceal orifice, ileocecal valve and palpation. The colonoscopy was performed without difficulty. The patient tolerated the procedure well. The quality of the bowel preparation was good. Scope In: 10:27:56 AM Scope Withdrawal Time 0 hours 10 minutes 23 seconds Scope Out: 10:42:37 AM Total Procedure Duration Time 0 hours 14 minutes 41 seconds Findings: The perianal and digital rectal examinations were normal. The colon (entire examined portion) appeared normal. The entire examined colon appeared normal on direct and retroflexion views. Impression: - The entire examined colon is normal. - The entire examined colon is normal on direct and retroflexion views. - No specimens collected. Recommendation: - Discharge patient to home. - Resume previous diet. - Continue present medications. - Repeat colonoscopy in 10 years for screening purposes. Procedure Code(s): --- Professional --- G0121, Colorectal cancer screening; colonoscopy on individual not meeting criteria for high risk CPT copyright 2017 [employer]. All rights reserved. The codes documented in this report are preliminary and upon bmw sales consultant review may be revised to meet current compliance requirements. Tony Tarango DO 02/16/2022 10:48:37 AM This report has been signed electronically. Number of Addenda: 0 Note Initiated On: 02/16/2022 10:21 AM
--- NOTE | 2022-02-16 10:49 | OP.CCLET_ITS ---
02/16/2022 Berto Samson MD [address] [place] [address] [place] [address] Re : Colonoscopy procedure for Holly Trinawinter Dear Dr. Samson This procedure was performed on Wednesday, February 16, 2022. My impressions and recommendations are as follows: Impressions : - The entire examined colon is normal. - The entire examined colon is normal on direct and retroflexion views. - No specimens collected. Recommendations : - Discharge patient to home. - Resume previous diet. - Continue present medications. - Repeat colonoscopy in 10 years for screening purposes. My findings are described in the full procedure note, which is enclosed. If I can be of further assistance, please feel free to contact me at . Sincerely, Tony Tarango, 02/16/2022 10:48:37 AM This report has been signed electronically.
== END 2022-02-16 11:37 | disposition home or self-care (01) ==
LOC: EN 09:20 → AC 09:21
PROVIDERS: PCP Internal Medicine; Referring Provider Internal Medicine; Visit Provider Internal Medicine Gastroenterology
PROC: 0DJD8ZZ Inspection of Lower Intestinal Tract, Via Natural or Artificial Opening Endoscopic (ICD-10-PCS; CPT 45378; principal; 2022-02-16 10:40)
DX: Z12.11 Encounter for screening for malignant neoplasm of colon (principal); M99.01 Segmental and somatic dysfunction of cervical region; M99.02 Segmental and somatic dysfunction of thoracic region; M99.03 Segmental and somatic dysfunction of lumbar region; M99.05 Segmental and somatic dysfunction of pelvic region; Z79.899 Other long term (current) drug therapy
CPT/HCPCS: 45378; J7120; J2405

== ENCOUNTER → 2022-05-13 | Outpatient (CLI) | payer OTHER, SELFPAY ==
--- NOTE | 2022-05-13 14:14 | BI_ITS ---
MAMMOGRAPHY - BILATERAL SCREENING REASON FOR EXAM: Female, 51 years old. Routine annual screening examination. PERTINENT HISTORY: Non-contributory. TECHNIQUE: Digital bilateral breast bhavna (3D mammographic acquisition) in the CC and MLO projections. 2-D mediolateral oblique (MLO) and craniocaudad (CC) views of both breasts were obtained. CAD: Full Field Digital Mammography with Computer Added Detection was performed. COMPARISON: Comparison is made with prior study dated August 31, 2021 and December 05, 2019. FINDINGS: Breast Composition: The breasts are heterogeneously dense, which may obscure small masses. There are no dominant masses or suspicious calcifications. Stable small benign-appearing bilateral axillary lymph nodes. No other significant abnormalities are identified. There has been no significant change since the prior study. BI/SCRN MAMM (CAD)W/BHAVNA BILAT IMPRESSION: Stable bilateral screening mammogram. Yearly follow-up mammogram recommended. (A) ASSESSMENT CATEGORY: BIRADS Category 1: Negative. A letter regarding these results will be sent to the patient by the facility within 30 days. Approximately 10% of breast cancers are not detected by mammography. A normal mammogram should not delay biopsy of a clinically suspicious abnormality. [id number] Electronically Signed: Jamal Bruce MD at 15:15 EDT ,
== END | disposition home or self-care (01) ==
LOC: OPBI 14:13
PROVIDERS: PCP Internal Medicine; Visit Provider Internal Medicine
DX: Z12.31 Encounter for screening mammogram for malignant neoplasm of breast (principal)
CPT/HCPCS: 77063; 77067

== ENCOUNTER → 2022-09-01 | Outpatient (CLI) | payer OTHER, SELFPAY ==
[2022-09-01 08:22] LABS: Estradiol 26.1 pg/mL
[2022-09-01 08:24] LABS: Progesterone Level 16.57 ng/mL (See Comment)
== END | disposition home or self-care (01) ==
PROVIDERS: PCP Internal Medicine
DX: E28.8 Other ovarian dysfunction (principal)
CPT/HCPCS: 36415; 82670; 84144; 84403

== ENCOUNTER → 2022-11-19 | Outpatient (CLI) | payer OTHER, SELFPAY ==
[2022-11-19 09:14] LABS: Progesterone Level 23.46 ng/mL (See Comment)
[2022-11-19 09:26] LABS: Estradiol 27.9 pg/mL
[2022-11-20 04:07] LABS: DHEA Sulfate 73.1 ug/dL (41.2-243.7)
== END | disposition home or self-care (01) ==
LOC: LAB 07:23
PROVIDERS: PCP Internal Medicine
DX: E27.8 Other specified disorders of adrenal gland (principal); N95.1 Menopausal and female climacteric states
CPT/HCPCS: 36415; 82627; 82670; 84144; 84403; 82626

== ENCOUNTER → 2022-12-30 | Outpatient (CLI) | payer OTHER, SELFPAY ==
--- NOTE | 2022-12-30 14:00 | ECHOD_ITS ---
Reason For Study: ABN EKG Procedure This was a 2D Doppler, Color Flow transthoracic echocardiogram. Exam performed in department. Left Ventricle Normal size and thickness. The left ventricular ejection fraction is 70 %. Normal diastology for age. Right Ventricle Normal right ventricle. Atria Normal left atrium. The right atrium is mildly enlarged. Mitral Valve The mitral valve is structurally normal. No prolapse or stenosis seen. Tricuspid Valve Normal tricuspid valve. Aortic Valve Trisinus/trileaflet aortic valve. Pulmonic Valve The pulmonic valve is not well visualized. Trivial pulmonic valve insufficiency. Great Vessels Normal sized aortic root. Pericardium/Pleural No pericardial effusion. MMode/2D Measurements & Calculations LVIDd: 4.7 cm IVSd: 0.92 cm LAV(MOD-sp2): 40.2 ml LVIDs: 2.7 cm LVPWd: 0.92 cm RVDd: 3.3 cm FS: 43.1 % LVAd ap4: 31.7 cm2 LVAd ap2: 32.5 cm2 SV(MOD-sp4): 74.5 ml LVLd ap4: 8.4 cm LVLd ap2: 8.7 cm EDV(MOD-sp4): 99.1 ml EDV(MOD-sp2): 107.4 ml EDV(sp4-el): 101.8 ml EDV(sp2-el): 103.4 ml LVAs ap4: 13.1 cm2 LVAs ap2: 13.7 cm2 LVLs ap4: 6.3 cm LVLs ap2: 6.3 cm ESV(MOD-sp4): 24.6 ml ESV(MOD-sp2): 26.2 ml ESV(sp4-el): 23.3 ml ESV(sp2-el): 25.2 ml EF(MOD-sp4): 75.2 % EF(MOD-sp2): 75.6 % EF(sp4-el): 77.2 % SV(MOD-sp2): 81.2 ml SV(sp4-el): 78.6 ml LA dimension(2D): 3.4 cm TAPSE: 3.8 cm Time Measurements MV dec time: 0.27 sec Doppler Measurements & Calculations MV E max jeancarlos: 91.0 cm/sec Lat Peak E' Jeancarlos: 15.6 cm/sec Med Peak E' Jeancarlos: 19.0 cm/sec MV A max jeancarlos: 60.2 cm/sec E/E' lat: 5.8 E/E' med: 4.8 MV E/A: 1.5 MV V2 max: 122.0 cm/sec MV P1/2t max jeancarlos: 129.1 cm/sec Ao V2 max: 141.1 cm/sec MV max P.0 mmHg MV P1/2t: 98.4 msec Ao max P.0 mmHg MV V2 mean: 48.9 cm/sec MV dec slope: 384.1 cm/sec2 Ao V2 mean: 98.3 cm/sec MV mean P.3 mmHg MVA(P1/2t): 2.2 cm2 Ao mean P.4 mmHg MV V2 VTI: 37.8 cm Ao V2 VTI: 35.0 cm AV (velocity ratio): 0.88 LV V1 max: 142.7 cm/sec PA V2 max: 123.0 cm/sec LV V1 max P.1 mmHg PA V2 mean: 74.9 cm/sec LV V1 mean P.7 mmHg LV V1 mean: 88.1 cm/sec LV V1 VTI: 30.7 cm ECHO/Echo Complete Interpretation Summary The left ventricular ejection fraction is 70 %. The right atrium is mildly enlarged. Ordering Physician: Berto Samson Referring Physician: Berto Samson Performed By: Amber Solis RDCS, RVT
== END | disposition home or self-care (01) ==
LOC: CVS 13:58
PROVIDERS: PCP Internal Medicine; Referring Provider Internal Medicine; Visit Provider Internal Medicine
DX: R94.31 Abnormal electrocardiogram [ECG] [EKG] (principal); R00.1 Bradycardia, unspecified
CPT/HCPCS: 93306

== ENCOUNTER → 2023-02-25 | Outpatient (CLI) | payer OTHER, SELFPAY ==
--- OUTSIDE RECORDS SUMMARY | 2023-02-25 07:01 | XMS RPT_ITS | CCD ---
Author Name Unknown Address [id number] [place] [address] Organization [facility] Care Team Providers Care 911 Operator Name Role Phone Mumtaz Lamar Unavailable Clare Choi Unavailable Liliam Valdez Unavailable Unavailable Eliana Ceballos Unavailable Unavailable Roxann Esquivel Unavailable Unavailable Unavailable Unavailable Medications Completed/Discontinued Medications Medication Drug Class(es) Dates Sig (Normalized) Sig (Original) amoxicillin 875 mg / clavulanate 125 mg oral tablet (1 source) Penicillin-class Antibacterial Start: 05-02-2012 End: 05-16-2012 take 1 tablet by mouth twice daily AUGMENTIN, 875-125MG (Oral Tablet) 1 Tablet Twice daily for 14 days Quantity: 28 {Tablet} Refills: 0 Ordered: 02-May-2012 Mumtaz GRANADOS LamarLuz Pandya CNP Hilary Escobar Start : 02-May-2012 End : 16-May-2012 Inactive azithromycin 250 mg oral tablet (1 source) Macrolide Antimicrobial Start: 06-08-2011 End: 03-18-2012 ZITHROMAX Z-EILEEN, 250MG (Oral Tablet) 1 Tablet TAD for 0 days Quantity: 1 {Package(s)} Refills: 0 Ordered: 18-Mar-2012 Ekaterina Romero Start : 08-Jun-2011 End : 18-Mar-2012 Inactive bifidobacterium animalis [id number] unt / lactobacillus acidophilus [id number] unt oral capsule (1 source) End: 05-05-2013 take 1 capsule by mouth once daily PROBIOTIC FORMULA (Oral Capsule) qd End : 05-May-2013 Discontinued bifidobacterium infantis 4 mg oral capsule (1 source) Start: 05-02-2012 End: 08-02-2012 take 1 capsule by mouth once daily ALIGN, 4MG (Oral Capsule) 1 Capsule daily for 0 days Quantity: 14 {Capsule} Refills: 0 Ordered: 02-Aug-2012 Eliana Ceballos Start : 02-May-2012 End : 02-Aug-2012 Inactive Calcium (1 source) Phosphate Binder, Calcium take 1 tablet by mouth once daily CALCIUM, 500MG (Oral Tablet) 1 (one) daily (500 MG) Active cephalexin 500 mg oral capsule (2 sources) Cephalosporin Antibacterial Start: 09-24-2014 End: 11-05-2014 take 1 capsule by mouth twice daily CEPHALEXIN, 500MG (Oral Capsule) 1 (one) Capsule bid for 0 days Quantity: 20 {Capsule} Refills: 0 Ordered: 05-Nov-2014 Ekaterina Romero Start : 24-Sep-2014 End : 05-Nov-2014 Discontinued Problems Active Problems Problem Classification Problem Date Documented Da te Episodic/Chronic Esophageal disorders (5 sources) Gastroesophageal reflux disease; Translations: [GERD (gastroesophageal reflux disease)] 08-28-2016 Chronic Past or Other Problems Problem Classification Problem Date Documented Da te Episodic/Chronic Abdominal pain (2 sources) Epigastric pain; Translations: [Epigastric pain] Resolved: 05-12-2011 02-25-2018 Episodic Allergic reactions (4 sources) Allergic contact dermatitis; Translations: [Eczema] Resolved: 11-05-2014 08-28-2016 Episodic Results Test Name Value Interpretation Reference Range Facil ity Vital Signs Date Time Vital Sign Value Performing Clinician Facility 08-28-2016 11:02-0400 BMI (Body Mass Index) 28.16 kg/m2 Hilary Mumtaz [facility] Work Phone: 08-28-2016 11:02-0400 Body Temperature 97.2 [degF] Hilary Mumtaz [facility] Work Phone: 08-28-2016 11:02-0400 Body weight 80.34 kg Hilary Mumtaz [facility] Work Phone: 08-28-2016 11:02-0400 BP Diastolic 80 mm[Hg] Hilary Mumtaz [facility] Work Phone: Encounters Encounter Date Encounter Type Care Provider Facility Start: 09-15-2016 End: 09-15-2016 Annotation/Addendum 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 Start: 08-28-2016 End: 08-28-2016 Office outpatient visit 15 minutes Hilary [facility] Start: 05-15-2016 End: 05-15-2016 Office outpatient visit 25 minutes Hilary [facility] Start: 03-11-2016 End: 03-11-2016 Office outpatient visit 15 minutes Hilary Bach [facility] Start: 06-25-2015 End: 06-25-2015 Office outpatient visit 15 minutes Hilary Bach [facility] Start: 02-25-2015 End: 02-25-2015 Phone Encounter 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 Start: 11-07-2014 End: 11-07-2014 Phone Encounter 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 Start: 11-05-2014 End: 11-05-2014 Office outpatient visit 25 minutes Hilary Bach [facility] Start: 09-24-2014 End: 09-24-2014 Office outpatient visit 25 minutes Hilary [facility] Start: 05-29-2013 End: 05-30-2013 Patient encounter procedure Hilary Bach [facility] Start: 05-05-2013 End: 05-05-2013 Patient encounter procedure Hilary Bach [facility] Start: 08-02-2012 End: 08-02-2012 Office outpatient visit 15 minutes Hilary Bach [facility] Start: 05-02-2012 End: 05-02-2012 Office outpatient visit 15 minutes Hilary Bach [facility] Start: 03-18-2012 End: 03-18-2012 Patient encounter procedure Hilary Bach [facility] Start: 06-08-2011 End: 06-08-2011 Office outpatient visit 25 minutes Hilary [facility] Start: 05-12-2011 End: 05-13-2011 Patient encounter procedure Hilary [facility] Start: 07-03-2009 End: 07-03-2009 Historical Summary 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 Start: 07-03-2009 End: 07-03-2009 Patient encounter procedure Hilary [facility] Start: 05-01-2009 End: 05-01-2009 Annotation/Addendum 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 Start: 04-17-2009 End: 04-18-2009 Patient encounter procedure Hilary [facility] Start: 10-29-2008 End: 10-29-2008 Office outpatient visit 15 minutes Hilary Pandya [facility] Start: 10-09-2008 End: 10-09-2008 Patient encounter procedure Hilary [facility] Start: 10-18-2007 End: 07-09-2008 Patient encounter procedure Hilary [facility] Start: 10-06-2007 End: 10-06-2007 Phone Encounter Hilary Pandya [facility] Social Science Professor al Medicine Start: 10-03-2007 End: 10-03-2007 Patient encounter procedure Hilary [facility] Start: 06-07-2006 End: 06-07-2006 Patient encounter procedure Hilary Pandya [facility] Start: 04-08-2006 End: 04-08-2006 Office outpatient visit 25 minutes Hilary [facility] Start: 11-11-2005 End: 11-11-2005 Historical Summary Hilary Pandya [facility] Social Science Professor al Medicine Procedures Date Procedure Procedure Detail Performing Clinician Start: 07-06-2018 End: 07-06-2018 Pelvic (Non ) Comments: See Note; NOTES: [facility] Imaging Services [address] [place] [address] Pelvic (Non ) MR#: [id number] Acct: [id number] Name: HOLLY HAMEED Rep #: [id number] : 1970 F 47 From: Terry Quintero MD PCP: Hilary Pandya NP Status: REG CLI Study: Pelvic (Non ) Date of Exam: 07/06/18 Exam# [id number] Ordering Dr: Екатерина Short BASEBALL COACH-C STUDY: ULTRASOUND OF THE FEMALE PELVIS - COMPLETE REASON FOR EXAM: Female, 47 years old. Abnormal bleeding LMP: 06/20/2018 TECHNIQUE: Transabdominal and Transvaginal TECHNICAL QUALITY: Adequate. COMPARISON: None. FINDINGS: The uterus is anteverted and is in a midline position. The uterus measures 8.8 x 6.3 x 4.3 cm. Normal uterine cervix. The endometrium measures 4 mm in thickness, and is hyperechoic. There is no demonstrated endometrial mass. There is no demonstrated myometrial mass. I.U.D. - The patient does not have an I.U.D. The right ovary is visualized. The right ovary measures 2.5 x 1.4 x 1.0 cm. There is no right ovarian cyst or ovarian mass. There is no visualized right adnexal mass or complex lesion. There is normal arterial and normal venous vascularity. The left ovary is visualized. The left ovary measures 1.6 x 2.0 x 1.5 cm. There is no left ovarian cyst or ovarian mass. There is no visualized left adnexal mass or complex lesion. There is normal arterial and normal venous vascularity. There is no fluid in the cul-de-sac. The pre void volume of the bladder was 411.7 ml. The post void volume of the bladder was less than 10 ml. US/Pelvic (Non ) IMPRESSION: No suspicious sonographic findings Electronically Signed: Wade Quintero MD at 19:55 EDT , Service support , CC: RICKY Pandya; RICKY Short Interventional Nurse: Signed Candelaria Carrasco Work Phone: Start: 07-06-2018 End: 07-06-2018 Transvaginal Non- Comments: See Note; NOTES: [facility] Imaging Services [address] [place] [id number] Transvaginal Non- MR#: [id number] Acct: [id number] Name: HOLLY HAMEED Rep #: [id number] : 1970 F 47 From: Terry Quintero MD PCP: Hilary Pandya NP Status: REG CLI Study: Transvaginal Non- Date of Exam: 07/06/18 Exam# [id number] Ordering Dr: Екатерина Short BASEBALL COACH-C STUDY: ULTRASOUND OF THE FEMALE PELVIS - COMPLETE REASON FOR EXAM: Female, 47 years old. Abnormal bleeding LMP: 06/20/2018 TECHNIQUE: Transabdominal and Transvaginal TECHNICAL QUALITY: Adequate. COMPARISON: None. FINDINGS: The uterus is anteverted and is in a midline position. The uterus measures 8.8 x 6.3 x 4.3 cm. Normal uterine cervix. The endometrium measures 4 mm in thickness, and is hyperechoic. There is no demonstrated endometrial mass. There is no demonstrated myometrial mass. I.U.D. - The patient does not have an I.U.D. The right ovary is visualized. The right ovary measures 2.5 x 1.4 x 1.0 cm. There is no right ovarian cyst or ovarian mass. There is no visualized right adnexal mass or complex lesion. There is normal arterial and normal venous vascularity. The left ovary is visualized. The left ovary measures 1.6 x 2.0 x 1.5 cm. There is no left ovarian cyst or ovarian mass. There is no visualized left adnexal mass or complex lesion. There is normal arterial and normal venous vascularity. There is no fluid in the cul-de-sac. The pre void volume of the bladder was 411.7 ml. The post void volume of the bladder was less than 10 ml. US/Transvaginal Non- IMPRESSION: No suspicious sonographic findings Electronically Signed: Wade Quintero MD at 19:55 EDT , Service support , CC: RICKY Pandya; RICKY Short Interventional Nurse: Signed Candelaria Carrasco Work Phone: Start: 04-27-2018 End: 04-27-2018 Massage Therapy Evaluation Comments: See Note; NOTES: [facility] [address] [place] [address]. [address] [place] [address] / REHABILITATION SERVICES INITIAL EVALUATION MR#: [id number] Acct: [id number] Name: HOLLY HAMEED Rep #: [id number] : 1970 47 From: Lyla Waller Referring Dr.: Hilary Pandya NP Status: REG RCR Insurance: [facility] SELF PAY INSURANCE Massage Therapy Evaluation: Initial Evaluation Date: 04/26/2018 /Age: 11 1970, 47 Diagnosis: Right Trapezius Strain Medications: None Goals: Decrease muscle spasms Decrease muscle tension and pain Decrease stress Assessment: Holly is an excellent candidate for massage therapy. She has had significant reduction of symptoms using massage in the past. Plan: The plan of care was reviewed with the patient she is to be seen one time per month or PRN for a total of 10 visits. Lyla Waller LMT <Electronically signed by Lyla Waller > 04/27/18 0653 CC: Hilary Pandya BASEBALL COACH; RICKY Short JM Signed Hilary Pandya Start: 02-10-2018 End: 02-10-2018 Inorganic Chemist Office Visit Report Comments: See Note; NOTES: [facility] [address] [facility] [place] [address] OFFICE VISIT Date of Service: 06/11/17 MR#: [id number] Acct: [id number] Name: HOLLY HAMEED Rep #: [id number] : 1970 Provider: RICKY Short Age/Sex: 46/F [place] [facility] [place] Status: Signed with Addenda ADDENDUM by RICKY Short on 02/10/18 at 0907 Addendum entered and electronically signed by DALTON Oliveira 02/10/18 09:07: Rectal exam was deferred. No masses palpated Assessment AND Plan Problems 1. Encounter for gynecological examination with abnormal finding Z01.411 2. Pap smear for cervical cancer screening Z12.4 3. Encounter for screening mammogram for malignant neoplasm of breast Z12.31 4. Perimenopausal N95.1 Plan - DALTON Oliveira Completed breast and pelvic exam Reviewed diet and exercise Pap thin prep pap with HPV Mammogram ordered Contraception spouse with vasectomy Discussed symptoms of perimenopause. Discussed use, benefits, risks and side effects of lo loestrin. Instruct on Wednesday start July if no spontaneous menses, written information given. 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 Orders Orders: Medications New: 02/10/18 0907 <Electronically signed by Екатерина HOFFMAN> Date Екатерина Short cc: * Signed Intake Vital Signs06/11/17 Height 5 ft 6.5 in 06/11/17 Weight: 176 lb 8 oz 06/11/17 Body Mass Index (BMI) 28.0 06/11/17 Blood Pressure 118/66 Intake Visit Reasons: Annual Pharmacy Analyst Required: No Is patient in pain?: No Allergies No Known Allergies Allergy (Verified 06/11/17 08:59) Medications antiarthritic combination no.2 900 mg tablet mg PO 06/11/17 [History Confirmed 06/11/17] calcium carbonate 500 mg calcium (1,250 mg) tablet 500 mg PO BID tab 06/11/17 [History Confirmed 06/11/17] cholecalciferol (vitamin D3) 2,000 unit capsule 2,000 unit PO QDAY 06/11/17 [History Confirmed 06/11/17] multivitamin tablet 1 tab PO QDAY 06/11/17 [History Confirmed 06/11/17] norethindrone 1 mg-ethinyl estradiol 10 mcg (24)-iron 10 mcg(2) tablet 1 tab PO QDAY #28 tab 06/11/17 [Rx Confirmed 06/11/17] omega-3 fatty acids 1,000 mg capsule 1,000 mg PO QDAY 06/11/17 [History Confirmed 06/11/17] Is last menstrual period known: Yes Last Menstral Period: 05/26/17 Post menopausal: No Patient : No : No PFSH Surgical History S/P dilation and curettage (Resolved) S/P foot surgery, left (Resolved) Family History Mother Diabetes Hypertension Grandfather CVA (cerebral vascular accident) Diabetes Hypertension Social History Smoking Status: Never smoker alcohol intake: current alcohol intake frequency: holidays/special occasions only substance use type: does not use caffeine: Yes (twice a week) what type of physical activity do you participate in: running, swimming, yoga frequency: 5-6 times per week seatbelt use: always do you feel safe at home: Yes 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 Menses more irregular, last one in May X 10 days. Prior to that in February. Hot flushes, tearful, anxious, vaginal dryness. 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 [facility] Female Reproductive History Last Menstral Period: 05/26/17 ROS Const Constitutional: Denies fatigue, weight gain or weight loss Cardio Card: Denies chest pain Resp Resp: Denies cough or shortness of breath with activity GI GI: Denies abdominal pain, constipation, change in stools, vomiting or bloating : Reports as per HPI; denies urinary frequency, pelvic pain, urinary urgency, vaginal discharge, vaginal itching, urinary incontinence or difficulty urinating Exam Const General: cooperative, healthy appearing, no acute distress, well developed Orientation: alert, oriented to person, oriented to place HENOH Head: normal to inspection Neck Neck: normal visual inspection Thyroid: thyroid normal Lymphatic: no lymphadenopathy noted Chest Breast inspection: normal inspection of the breasts, normal inspection of the axillae Breast palpation: normal palpation of the breasts, normal palpation of the axillae, no axillary lymphadenopathy Resp Effort AND Inspection: normal respiratory effort Auscultation: clear to auscultation bilaterally Cardio Rate: regular rate Rhythm: regular rhythm GI Palpation: soft, nontender, no masses Rectal Exam: mass, deferred External Female Exam: normal external appearance, normal appearance of the urethra Urethra: normal appearance of the urethra, normal palpation Speculum Exam - Vagina: normal appearance of the vagina (anterior wall slightly prominent), normal vaginal discharge Speculum Exam - Cervix: normal appearance of the cervix, other (pap collected) Bimanual Exam- Vagina AND Uterus: normal bimanual exam, uterine size normal, uterine shape normal, uterus non-tender Bimanual Exam- Adnexa, other: normal adnexae, no adnexal masses, adnexae non-tender, pelvic support normal Pelvic Support: normal Neuro General: alert, oriented x3 Psych Affect: normal affect Assessment AND Plan Problems 1. Encounter for gynecological examination with abnormal finding Z01.411 2. Pap smear for cervical cancer screening Z12.4 3. Encounter for screening mammogram for malignant neoplasm of breast Z12.31 4. Perimenopausal N95.1 Plan Completed breast and pelvic exam Reviewed diet and exercise Pap thin prep pap with HPV Mammogram ordered Contraception spouse with vasectomy Discussed symptoms of perimenopause. Discussed use, benefits, risks and side effects of lo loestrin. Instruct on Wednesday start July if no spontaneous menses, written information given. 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 Orders Orders: Medications New: Coding Level of Care Code Off vis,new,prev 40-64yrs Diagnoses Encounter for gynecological examination with abnormal finding Z01.411 Gynecological examination findings: abnormal findings PRESENT Pap smear for cervical cancer screening Z12.4 Encounter for screening mammogram for malignant neoplasm of breast Z12.31 Perimenopausal N95.1 06/11/17 1009 <Electronically signed by Екатерина HOFFMAN> Date Екатерина HOFFMAN Cosigner Signature: Date (if applicable) CC: Hilary Angeliasandrabria Start: 01-27-2018 End: 01-27-2018 Discharge Summary Comments: See Note; NOTES: [facility] Medical Records Department [address] [place] [address] Discharge Summary 01/27/18 1304 MR#: [id number] Acct: [id number] Name: HOLLY HAMEED Rep #: [id number] : 1970 47 From: Lyla Waller PCP: Mumtaz GARCÍA, Hilary Status: REG RCR Y Location: [facility] Therapy Discharge Summary: Initial Evaluation: 04/06/2017 Diagnosis: Right trapezius strain No. of Visits: 7 of 10 Date of last visit: 12/28/2017 Goals: Decreased trapezius pain Decreased stress This patient is being discharged from our care at the [facility]. Thank you, Lyla Waller, T 01/27/18 1306 <Electronically signed by Lyla Waller > Date Lyla Waller Cosigner Signature (if applicable): Date CC: Lyla Waller; Hilary Pandya NP Signed Hilary Pandya Start: 10-12-2017 End: 10-12-2017 Inorganic Chemist Office Visit Report Comments: See Note; NOTES: [facility] [address] [place] [address] OFFICE VISIT Date of Service: 10/12/17 MR#: [id number] Acct: [id number] Name: HOLLY HAMEED Rep #: [id number] : 1970 Provider: RICKY Short Age/Sex: 46/F [place] [facility] [place] Status: Signed Intake Vital Signs10/12/17 Height 5 ft 6.5 in 10/12/17 Weight: 175 lb 10/12/17 Body Mass Index (BMI) 27.8 10/12/17 Blood Pressure 108/74 Intake Visit Reasons: Chela SIERRA Follow Up Pharmacy Analyst Required: No Is patient in pain?: No Allergies No Known Allergies Allergy (Verified 10/12/17 08:03) Medications antiarthritic combination no.2 900 mg tablet mg PO 06/11/17 [History Confirmed 10/12/17] calcium carbonate 500 mg calcium (1,250 mg) tablet 500 mg PO BID tab 06/11/17 [History Confirmed 10/12/17] cholecalciferol (vitamin D3) 2,000 unit capsule 2,000 unit PO QDAY 06/11/17 [History Confirmed 10/12/17] multivitamin tablet 1 tab PO QDAY 06/11/17 [History Confirmed 10/12/17] omega-3 fatty acids 1,000 mg capsule 1,000 mg PO QDAY 06/11/17 [History Confirmed 10/12/17] norethindrone 1 mg-ethinyl estradiol 20 mcg (24)-iron 75 mg (4) tablet 1 tab PO DAILY #84 tab 10/12/17 [Rx Confirmed 10/12/17] Is last menstrual period known: Yes Last Menstral Period: 09/22/17 Post menopausal: No Patient : No : No PFSH Surgical History S/P dilation and curettage (Resolved) S/P foot surgery, left (Resolved) Family History Mother Diabetes Hypertension Grandfather CVA (cerebral vascular accident) Diabetes Hypertension Social History Smoking Status: Never smoker alcohol intake: current alcohol intake frequency: holidays/special occasions only substance use type: does not use caffeine: Yes (twice a week) what type of physical activity do you participate in: running, swimming, yoga frequency: 5-6 times per week seatbelt use: always do you feel safe at home: Yes additional social history: - 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 States emotionally 100% better . Noting that she is spotting week prior to placebo pills-light in amount but lasting 7 days. No cramping. Female Reproductive History Last Menstral Period: 09/22/17 Questions: Metorrhagia: No, Sexually active: Yes, Dyspareunia: No, PCB: No 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 DateName GA/Weeks Outcome Route Bth WeighInfant GeLabor LgtAnesthesiDel LocatProvider FOB t n h a n Assessment AND Plan Problems 1. Perimenopausal N95.1 Plan Change to next cycle and call if break through bleeding persists after 2nd cycle. RTO annual exam, prn 15 min FTF counseling with patient Medications New: Discontinued: norethindrone-e.estradiol- iron 1 mg-10 mcg (24)/10 mcg (2) (Lo Loestrin Fe)1 tab PO QDAY Discontinued Reason: Order Changed Coding Level of Care Code Off vis,est,level 3 Diagnoses Perimenopausal N95.1 10/12/17 0835 <Electronically signed by Екатерина HOFFMAN> Date Екатерина HOFFMAN Cosigner Signature: Date (if applicable) CC: Hilary Pandya Start: 07-29-2017 End: 07-29-2017 Downtime Report Comments: See Note; NOTES: [facility] Medical Records Department [address] [place] [address] Downtime Report MR#: [id number] Acct: [id number] Name: HOLLY HAMEED Rep #: [id number] : 1970 46 From: El Thomas PCP: Hilary Pandya NP Status: REG RCR This patient was seen during an EMR downtime July 12, 2017 - July 19, 2017. This patient may have a combination of paper and electronic documentation or all paper documentation. All documentation is viewable within the e-chart portion of [employer] for each patient visit. Hilary Angeliasandrabria Start: 06-23-2017 End: 06-24-2017 SCREENING MAMM (CAD), BILAT Comments: See Note; NOTES: [facility] Imaging Services [address] [place] [address] SCREENING MAMM (CAD), BILAT MR#: [id number] Acct: [id number] Name: HOLLY HAMEED Rep #: [id number] : 1970 F 46 From: Jamal Bruce MD PCP: Hilary Pandya NP Status: REG CLI Study: SCREENING MAMM (CAD), BILAT Date of Exam: 06/23/17 Exam# [id number] Ordering Dr: Екатерина Short BASEBALL COACH-C MAMMOGRAPHY - BILATERAL SCREENING REASON FOR EXAM: Female, 46 years old. Routine annual screening examination. PERTINENT HISTORY: Non-contributory. TECHNIQUE: Digital bilateral breast siobhan (3D mammographic acquisition) in the CC and MLO projections. 2-D mediolateral oblique (MLO) and craniocaudad (CC) views of both breasts were obtained. CAD: Full Field Digital Mammography with Computer Added Detection was performed. COMPARISON: Comparison is made with prior study dated May 18, 2016 and October 30, 2014. FINDINGS: Breast Composition: The breasts are heterogeneously dense, which may obscure small masses. There are no dominant masses or suspicious calcifications. No other significant abnormalities are identified. There has been no significant change since the prior study. BI/SCREENING MAMM (CAD), BILAT IMPRESSION: Stable bilateral screening mammogram. Yearly follow-up mammogram recommended. (A) ASSESSMENT CATEGORY: BIRADS Category 1: Negative. A letter regarding these results will be sent to the patient by the facility within 30 days. Approximately 10% of breast cancers are not detected by mammography. A normal mammogram should not delay biopsy of a clinically suspicious abnormality. [id number] Electronically Signed: Jamal Bruce MD at 8:08 EDT Tel [phone], Service support , CC: Hilary Pandya NP; RICKY Short Interventional Nurse: Signed Candelaria Carrasco Work Phone: Start: 06-11-2017 End: 06-11-2017 Inorganic Chemist Office Visit Report Comments: See Note; NOTES: [facility] [address] [place] [address] OFFICE VISIT Date of Service: 06/11/17 MR#: [id number] Acct: [id number] Name: HOLLY HAMEED Rep #: [id number] : 1970 Provider: RICKY Short Age/Sex: 46/F [place] [facility] [place] Status: Signed Intake Vital Signs06/11/17 Height 5 ft 6.5 in 06/11/17 Weight: 176 lb 8 oz 06/11/17 Body Mass Index (BMI) 28.0 06/11/17 Blood Pressure 118/66 Intake Visit Reasons: Annual Pharmacy Analyst Required: No Is patient in pain?: No Allergies No Known Allergies Allergy (Verified 06/11/17 08:59) Medications antiarthritic combination no.2 900 mg tablet mg PO 06/11/17 [History Confirmed 06/11/17] calcium carbonate 500 mg calcium (1,250 mg) tablet 500 mg PO BID tab 06/11/17 [History Confirmed 06/11/17] cholecalciferol (vitamin D3) 2,000 unit capsule 2,000 unit PO QDAY 06/11/17 [History Confirmed 06/11/17] multivitamin tablet 1 tab PO QDAY 06/11/17 [History Confirmed 06/11/17] norethindrone 1 mg-ethinyl estradiol 10 mcg (24)-iron 10 mcg(2) tablet 1 tab PO QDAY #28 tab 06/11/17 [Rx Confirmed 06/11/17] omega-3 fatty acids 1,000 mg capsule 1,000 mg PO QDAY 06/11/17 [History Confirmed 06/11/17] Is last menstrual period known: Yes Last Menstral Period: 05/26/17 Post menopausal: No Patient : No : No PFSH Surgical History S/P dilation and curettage (Resolved) S/P foot surgery, left (Resolved) Family History Mother Diabetes Hypertension Grandfather CVA (cerebral vascular accident) Diabetes Hypertension Social History Smoking Status: Never smoker alcohol intake: current alcohol intake frequency: holidays/special occasions only substance use type: does not use caffeine: Yes (twice a week) what type of physical activity do you participate in: running, swimming, yoga frequency: 5-6 times per week seatbelt use: always do you feel safe at home: Yes additional social history: - [employer]- [employer] 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 Menses more irregular, last one in May X 10 days. Prior to that in February. Hot flushes, tearful, anxious, vaginal dryness. 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 [facility] Female Reproductive History Last Menstral Period: 05/26/17 ROS Const Constitutional: Denies fatigue, weight gain or weight loss Cardio Card: Denies chest pain Resp Resp: Denies cough or shortness of breath with activity GI GI: Denies abdominal pain, constipation, change in stools, vomiting or bloating : Reports as per HPI; denies urinary frequency, pelvic pain, urinary urgency, vaginal discharge, vaginal itching, urinary incontinence or difficulty urinating Exam Const General: cooperative, healthy appearing, no acute distress, well developed Orientation: alert, oriented to person, oriented to place [facility] Head: normal to inspection Neck Neck: normal visual inspection Thyroid: thyroid normal Lymphatic: no lymphadenopathy noted Chest Breast inspection: normal inspection of the breasts, normal inspection of the axillae Breast palpation: normal palpation of the breasts, normal palpation of the axillae, no axillary lymphadenopathy Resp Effort AND Inspection: normal respiratory effort Auscultation: clear to auscultation bilaterally Cardio Rate: regular rate Rhythm: regular rhythm GI Palpation: soft, nontender, no masses Rectal Exam: mass, deferred External Female Exam: normal external appearance, normal appearance of the urethra Urethra: normal appearance of the urethra, normal palpation Speculum Exam - Vagina: normal appearance of the vagina (anterior wall slightly prominent), normal vaginal discharge Speculum Exam - Cervix: normal appearance of the cervix, other (pap collected) Bimanual Exam- Vagina AND Uterus: normal bimanual exam, uterine size normal, uterine shape normal, uterus non-tender Bimanual Exam- Adnexa, other: normal adnexae, no adnexal masses, adnexae non-tender, pelvic support normal Pelvic Support: normal Neuro General: alert, oriented x3 Psych Affect: normal affect Assessment AND Plan Problems 1. Encounter for gynecological examination with abnormal finding Z01.411 2. Pap smear for cervical cancer screening Z12.4 3. Encounter for screening mammogram for malignant neoplasm of breast Z12.31 4. Perimenopausal N95.1 Plan Completed breast and pelvic exam Reviewed diet and exercise Pap thin prep pap with HPV Mammogram ordered Contraception spouse with vasectomy Discussed symptoms of perimenopause. Discussed use, benefits, risks and side effects of lo loestrin. Instruct on Wednesday start July if no spontaneous menses, written information given. 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 Orders Orders: Medications New: Coding Level of Care Code Off vis,new,prev 40-64yrs Diagnoses Encounter for gynecological examination with abnormal finding Z01.411 Gynecological examination findings: abnormal findings PRESENT Pap smear for cervical cancer screening Z12.4 Encounter for screening mammogram for malignant neoplasm of breast Z12.31 Perimenopausal N95.1 06/11/17 1009 <Electronically signed by Екатерина HOFFMAN> Date Екатерина HOFFMAN Cosigner Signature: Date (if applicable) CC: Hilary Angeliasandrabria Start: 04-07-2017 End: 04-07-2017 Massage Therapy Evaluation Comments: See Note; NOTES: [facility] [address] [place] [address]. [address] [place] [address] Fax REHABILITATION SERVICES INITIAL EVALUATION MR#: [id number] Acct: [id number] Name: HOLLY HAMEED Rep #: [id number] : 1970 46 From: Lyla Waller Referring Dr.: Hilary Pandya NP Status: REG RCR Insurance: [facility] SELF PAY INSURANCE Massage Therapy Evaluation: Evaluatoin Date:04/06/17 The patient is a 46 y.o. female, referred to [facility] by Hilary Pandya, with a diagnosis of right trapezius strain. She presents today with the symptoms of tension and aching through out the upper body, especially the shoulder and interscapular area. She reports no limitations to activities of daily living. She describes the symptoms as tension and aching. They have been present for many years and are fairly constant. She attributes the symptoms to the physical and stressful nature of her job. Her goals for treatment are to reduce muscle tension and promote relaxation. Her first treatment consisted of a one hour deep tissue massage to the full body focusing on her neck and shoulders. I found significant tension bilaterally through the upper trapezius, rhomboids and paraspinals with the left side being worse than than the right. The patient responded well to treatment with a significant decrease in muscle tension. I plan on seeing her one time a month for a total of ten one hour sessions. <Electronically signed by Lyla Waller > 04/07/17 0658 CC: Hilary Pandya NP Signed For Medicare only, by signing this I certify the plan of care. __ Physicians Signature Date Hilary Pandya Start: 01-28-2017 End: 01-28-2017 Discharge Summary Comments: See Note; NOTES: [facility] Medical Records Department [address] [address] Discharge Summary 01/28/17 0753 MR#: [id number] Acct: [id number] Name: YOLIEESTEVANHOLLY Valentino Rep #: [id number] : 1970 46 From: Lyla Waller PCP: Clare Choi DO Status: REG RCR Y Location: [facility] Massage Therapy Discharge Summary: This patient was seen for massotherapy evaluation on: 09/15/2016 Diagnosis: Right Trapezius Strain The patient had 5 sessions of massotherapy. The goals for treatment were met. SHe reported decreased muscle tension, trapezius pain as well as decreased stress. At this time I am discharging the patient from our care at the [facility] 01/28/17 0757 <Electronically signed by Lyla Waller > Date Lyla Waller Cosigner Signature (if applicable): Date CC: Lyla Waller; Clare Choi DO Signed Hilary Mitchellbria Start: 11-30-2016 End: 11-30-2016 Massage Therapy Evaluation Comments: See Note; NOTES: [facility] [address] [place] [address]. 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 She was referred by Hilary Pandya with a diagnosis of right trapezius strain. She presents with symptoms of tightness in the neck shoulders, mid and low back. She reports occasionally experiencing numbness and tingling in her right upper extremity. She denies having excessive headaches. The symptoms commenced due to no apparent reason. The patient feels that the physical nature of her job is the major contributing factor. She lists no medications. She lists no accidents within the last 15 years. He rates his overall health to be in good condition. Her goals for treatment are to decrease the tension and ache in her trapezius, as well as to promote overall healing and reduction of stress. Objective: Upon examination I found moderate tension through the full body and high tension in the upper trapezius and interscapular muscles. Her first treatment consisted of a one hour deep tissue massage to the full body focusing on the right upper extremity. Assessment: I was able to achieve a moderate release and the patient reported decreased pain and tension after the treatment. I feel that she is a good candidate for massage based on the results of her first treatment and how she has responded to massage in the past. Plan: The plan of care was reviewed with the patient. She is to be seen one time a month or as need for a total of 10 visits in 2017. Lyla Waller LMT <Electronically signed by Lyla Waller > 11/30/16 1421 CC: Clare Choi DO; OUT OF TOWN DOCTOR JM Signed For Medicare only, by signing this I certify the plan of care. __ Physicians Signature Date Hilary Pandya Start: 05-18-2016 End: 05-18-2016 SCREENING MAMM (CAD), BILAT Comments: See Note; NOTES: [facility] [address] [place] [address] Verdana 4d SCREENING MAMM (CAD), BILAT MR#: [id number] Acct: [id number] Name: HOLLY HAMEED Rep #: [id number] : 1970 F 45 From: Jamal Bruce MD PCP: Clare Choi DO Status: REG CLI Study: SCREENING MAMM (CAD), BILAT Date of Exam: 05/18/16 Exam# [id number] Ordering Dr: Hilary Pandya MAMMOGRAPHY - BILATERAL SCREENING REASON FOR EXAM: Female, 45 years old. Routine annual screening examination. PERTINENT HISTORY: Non-contributory. TECHNIQUE: Digital bilateral breast siobhan (3D mammographic acquisition) in the CC and MLO projections. 2-D mediolateral oblique (MLO) and craniocaudad (CC) views of both breasts were obtained. CAD: Full Field Digital Mammography with Computer Added Detection was performed. COMPARISON: Comparison is made with prior study dated October 30, 2014 and May 12, 2011. FINDINGS: Breast Composition: The breasts are heterogeneously dense, which may obscure small masses. There are no dominant masses or suspicious calcifications. No other significant abnormalities are identified. There has been no significant change since the prior study. HPBI/SCREENING MAMM (CAD), BILAT IMPRESSION: Stable bilateral screening mammogram. Yearly follow-up mammogram recommended. (A) ASSESSMENT CATEGORY: BIRADS Category 1: Negative. A letter regarding these results will be sent to the patient by the facility within 30 days. Approximately 10% of breast cancers are not detected by mammography. A normal mammogram should not delay biopsy of a clinically suspicious abnormality. [id number] Electronically Signed: Jamal Bruce MD at 10:48 EDT Tel [phone], Service support [phone], CC: Hilary Pandya; Clare Choi DO Interventional Nurse: Signed Hilary Pandya Work Phone: Start: 05-15-2016 End: 05-15-2016 Chest WITH Contrast Comments: See Note; NOTES: [facility] [address] [place] [address] Verdana 4d Chest WITH Contrast MR#: [id number] Acct: [id number] Name: HOLLY HAMEED Rep #: [id number] : 1970 F 45 From: Jamal Bruce MD PCP: Hilary Pandya Status: REG CLI Study: Chest WITH Contrast Date of Exam: 05/15/16 Exam# [id number] Ordering Dr: Hilary Pandya STUDY: CT CHEST WITH CONTRAST REASON FOR EXAM: Female, 45 years old. Right cervical mass. RADIATION DOSAGE (If Supplied By Facility): CTDIvol = ( 16.34 ) mGy, DLP = ( 1112.11 ) mGycm TECHNIQUE: Transaxial imaging was performed following intravenous administration of 100 ml of Isovue 300 contrast material. Multiplanar coronal and sagittal images were reformatted. Individualized dose optimization techniques were used for this CT. COMPARISON: None. FINDINGS: The lungs are normal. There is no demonstrated pleural abnormality. Normal heart and pericardium. Normal mediastinum. Normal hilar regions. Normal enhanced pulmonary arteries. Normal aorta arch and descending thoracic aorta. There are mild degenerative changes of the thoracic spine. There is no demonstrated abnormality of the visualized upper abdomen. CT/Chest WITH Contrast IMPRESSION: Normal enhanced CT Chest examination. Electronically Signed: Jamal Bruce MD at 14:55 EDT Tel [phone], Service support [phone], CC: Hilary Pandya Interventional Nurse: Signed Hilary Pandya Work Phone: Start: 05-15-2016 End: 05-15-2016 Soft Tissue Neck WITH Contrast Comments: See Note; NOTES: [facility] [address] [place] [address] Verdana 4d Soft Tissue Neck WITH Contrast MR#: [id number] Acct: [id number] Name: HOLLY HAMEED Rep #: [id number] : 1970 F 45 From: Jamal Bruce MD PCP: Hilary Pandya Status: REG CLI Study: Soft Tissue Neck WITH Contrast Date of Exam: 05/15/16 Exam# [id number] Ordering Dr: Hilary Pandya STUDY: CT SOFT TISSUE NECK WITH CONTRAST REASON FOR EXAM: Female, 45 years old. Right cervical mass. RADIATION DOSAGE (If Supplied By Facility): CTDIvol = ( 16.34 ) mGy, DLP = ( 1112.11 ) mGycm TECHNIQUE: The patient was scanned in a multi-detector CT scanner. High resolution transaxial imaging was performed following intravenous administration of 100 ml of Isovue 300 contrast material. Sagittal and coronal images were reconstructed. Individualized dose optimization techniques were used for this CT. COMPARISON: None. FINDINGS: The palpable abnormality corresponds to a 0.9 cm x 2.0 cm lipoma overlying the right supraclavicular region. Normal bilateral parotid glands. Normal bilateral financial investment manager spaces. Normal bilateral parapharyngeal spaces. Normal bilateral carotid spaces. Normal bilateral sublingual and submandibular glands and spaces. Normal visualized nasopharynx. Normal retropharyngeal space. Normal perivertebral space. Normal visualized bilateral faucial tonsils. The visualized tongue, tongue base and oropharynx are normal. The visualized cervical lymph nodes (levels I-) are within normal size limits, and maintain normal morphology. There is no demonstrated solid or cystic mass lesion. There is no abnormal contrast enhancement. Normal epiglottis, bilateral vallecula and hypopharynx. The pre-epiglottic and paraglottic adipose spaces are normal. Normal visualized bilateral piriform sinuses, aryepiglottic folds, vocal cords, and arytenoid-cricoid articulations. Normal subglottic trachea. Normal bilateral lobes of the thyroid gland. Normal visualized pulmonary apices. Normal visualized paranasal sinuses. Normal visualized cervical spine. CT/Soft Tissue Neck WITH Contrast IMPRESSION: The palpable abnormality corresponds to a small lipoma. Electronically Signed: Jamal Bruce MD at 14:57 EDT Tel [phone], Service support [phone], CC: Hilary Pandya Interventional Nurse: Signed Hilary Mitchella Work Phone: Start: 10-30-2014 End: 10-31-2014 Bilat Scrn Digital AND CAD Comments: See Note; NOTES: [facility] [address] [place] [address] Breast Imaging Report MR#: [id number] Acct: [id number] Name: HOLLY HAMEED Rep #: [id number] : 1970 F 43 From: Jamal Bruce MD PCP: Clare Choi DO Status: REG CLI Study: Biljoana Angelesn Digital AND CAD Date of Exam: 10/30/14 Exam# [id number] Ordering Dr: Clare Choi DO MAMMOGRAPHY - BILATERAL SCREENING REASON FOR EXAM: Female, 43 years old. Routine annual screening examination. PERTINENT HISTORY: Non-contributory. TECHNIQUE: Digital examination. Mediolateral oblique (MLO) and craniocaudad (CC) views of both breasts were obtained. CAD: CAD was performed on this study. COMPARISON: Comparison is made with prior study dated May 12, 2011 and April 06, 2008. FINDINGS: Breast Composition: The breasts are heterogeneously dense, which may obscure small masses. There are no dominant masses or suspicious calcifications. No other significant abnormalities are identified. There has been no significant change since the prior study. IMPRESSION: Stable bilateral screening mammogram. Yearly follow-up recommended. (A) ASSESSMENT CATEGORY: BIRADS Category 1: Negative. A letter regarding these results will be sent to the patient by the facility within 30 days. Approximately 10% of breast cancers are not detected by mammography. A normal mammogram should not delay biopsy of a clinically suspicious abnormality. Electronically Signed: Jamal Bruce MD at 9:06 EDT Tel [phone], Service support [phone], CC: Clare Choi DO Interventional Nurse: Signed Clare Choi Work Phone: Start: 02-07-2013 End: 03-16-2013 PT Discharge Summary Comments: See Note; NOTES: [facility] [address] [place], [place] [address] Fax REHABILITATION SERVICES DISCHARGE SUMMARY MR#: [id number] Acct: [id number] Name: HOLLY HAMEED Rep #: [id number] : 1970 42 From: Cher Zaman Referring Dr.: Clare Choi DO Status: DIS RCR Eval Date: Discharge Date: 01/03/13 DATE OF SERVICE: REFERRING PHYSICIAN: Dr. Clare Choi. This patient was seen for massotherapy evaluation on June 27, 2012 with a diagnosis of leg pain. She was treated with 8 sessions of deep tissue massage to the full body focusing on her back and lower extremities. The patient did report a decrease in leg pain as well as decrease in overall muscle tension throughout therapy. At this time, I am discharging the patient from our care at the [facility] facility. Lyla Zaman LMT T: NTS JOB: [id number] <Electronically signed by Cher Zaman > 02/07/13 0736 CC: * Signed Clare Choi Work Phone: Plan of Treatment Date Care Activity Detail Author Start: 08-28-2016 Provider Instructions for Treatment [facility] Work Phone: Start: 05-15-2016 Provider Instructions for Treatment Follow up - Make appt after diagnostic tests [facility] Work Phone: Start: 05-15-2016 Comprehensive metabolic panel Metabolic Panel, Comprehensive (92857) [facility] Work Phone: Start: 05-15-2016 Blood count complete auto&auto difrntl wbc CBC, Platelets & Auto Diff (34178) [facility] Work Phone: Start: 05-15-2016 TSH Qn TSH (37186) [facility] Work Phone: Start: 03-11-2016 Patient Education Cellulitis: eye [facility] Work Phone: Start: 03-11-2016 Procedure Education Eprescribed prescriptions (G8553) [facility] Work Phone: Start: 03-11-2016 Provider Instructions for Treatment Follow up if no improvement or if symptoms worsen [facility] Work Phone: Start: 11-05-2014 Cytp cerv/vag auto thin layer prep mnl screen Thin prep Pap (85585) (no STD testing) [facility] Work Phone: Start: 11-05-2014 Patient Education Pap Test (Cervical Smear) *: pap smear [facility] Work Phone: Start: 11-05-2014 Provider Instructions for Treatment [facility] Work Phone: Start: 09-24-2014 Patient Education Itching: itching [facility] Work Phone: Start: 09-24-2014 Procedure Education Eprescribed prescriptions (G8553) [facility] Work Phone: Start: 05-05-2013 Patient Education Fatigue: fatigue [facility] Work Phone: Start: 05-05-2013 Lipid panel LIPID PANEL (50303) [facility] Work Phone: Start: 05-05-2013 25 hydroxy includes fractions if performed Vitamin D Hydroxy (05614) [facility] Work Phone: Start: 05-05-2013 Cobalamin (Vitamin B12) [Mass/Vol] VITAMIN B-12 (CYANOCOBALAMIN) (48016) [facility] Work Phone: Start: 05-05-2013 Antibody abraham-monroy eb virus early antigen ea EBV Panel (60481) [facility] Work Phone: Start: 05-05-2013 Free T3 [Mass/Vol] T3, FREE (TRIDOTHYRONINE) (68506) [facility] Work Phone: Start: 05-05-2013 Free T4 [Mass/Vol] T4, FREE (THYROXINE) (28566) [facility] Work Phone: Start: 05-05-2013 TSH Qn TSH (90361) [facility] Work Phone: Start: 05-05-2013 Urnls dip stick/tablet reagent auto microscopy URINALYSIS, W/ MICRO (05909) [facility] Work Phone: Start: 05-05-2013 Blood count manual cell count each CBC WITH MANUAL DIFF (47391) [facility] Work Phone: Start: 05-05-2013 Comprehensive metabolic panel METABOLIC PANEL, COMPREHENSIVE (43984) [facility] Work Phone: Start: 08-02-2012 Patient Education Allergies: Controlling Your Environment: allergen [facility] Work Phone: Start: 03-18-2012 Patient Education Heartburn *: gerd [facility] Work Phone: Start: 03-18-2012 Free T4 [Mass/Vol] T4, FREE (THYROXINE) (03255) [facility] Work Phone: Start: 03-18-2012 Free T3 [Mass/Vol] T3, FREE (TRIDOTHYRONINE) (30759) [facility] Work Phone: Start: 03-18-2012 TSH Qn TSH (10646) [facility] Work Phone: Start: 07-03-2009 Provider Instructions for Treatment Solu Medrol Injection/ Education [facility] Work Phone: Start: 04-17-2009 Comprehensive metabolic panel METABOLIC PANEL, COMPREHENSIVE (52060) [facility] Work Phone: Start: 04-17-2009 Blood count manual cell count each CBC WITH MANUAL DIFF (38080) [facility] Work Phone: Start: 04-17-2009 Assay of lipase Lipase (50157) [facility] Work Phone: Start: 04-17-2009 Amylase [Catalytic activity/Vol] Amylase (62872) [facility] Work Phone: Start: 10-09-2008 Provider Instructions for Treatment [facility] Work Phone: Start: 06-07-2006 Provider Instructions for Treatment FOLLOW UP IN 6 WEEKS [facility] Work Phone: Start: 06-07-2006 Urnls dip stick/tablet rgnt auto w/o microscopy URINALYSIS W/O MICRO (40857) [facility] Work Phone: Start: 06-07-2006 TSH Qn TSH (04338) [facility] Work Phone: Start: 06-07-2006 Blood count manual cell count each CBC WITH MANUAL DIFF (96887) [facility] Work Phone: Start: 06-07-2006 Comprehensive metabolic panel METABOLIC PANEL, COMPREHENSIVE (28456) [facility] Work Phone: Start: 04-08-2006 Provider Instructions for Treatment [facility] Work Phone: [facility] Work Phone: [facility] Work Phone: [facility] Work Phone: [facility] Work Phone: [facility] Work Phone[facility] Work Phone[facility] Work Phone: [facility] Work Phone: [facility] Work Phone: [facility] Work Phone: [facility] Work Phone: Payers Date Payer Category Payer Policy ID Unknown [facility] Social History Date Type Detail Facility Caffeine Use Caffeine Use [facility] Work Phone: Family History Unknown Family Member Name Dates Details Brother 1 Comments:HTN & high choleste rol Status:Active Family Members In General Comments:Grandparents have t ype II DM Status:Active Father Comments:In good health Status:Active Mother Comments:High cholesterol Status:Active Instructions Name Dates Details How to access health informa tion online Indication:Nonsmoker Start:11-Mar-2016 Instruction Type:Patient Education How to access health informa tion online - Detail Indication:Nonsmoker Start:11-Mar-2016 Instruction Type:Patient Education Patient Instructions Indication:Nonsmoker Start:11-Mar-2016 Instruction Type:Provider Instructions for Treatment How to access health informa tion online Indication:Nonsmoker Start:25-Jun-2015 Instruction Type:Patient Education How to access health informa tion online - Detail Indication:Nonsmoker Start:25-Jun-2015 Instruction Type:Patient Education Patient Instructions Indication:Physical exam for work or camp (Renamed from Encounter for school health examination) Start:25-Jun-2015 Instruction Type:Provider Instructions for Treatment How to access health informa tion online Indication:Annual physical exam Start:05-Nov-2014 Instruction Type:Patient Education How to access health informa tion online - Detail Indication:Annual physical exam Start:05-Nov-2014 Instruction Type:Patient Education Patient Instructions Indication:Annual physical exam Start:05-Nov-2014 Instruction Type:Provider Instructions for Treatment How to access health informa tion online Indication:Contact dermatitis due to poison levon Start:24-Sep-2014 Instruction Type:Patient Education How to access health informa tion online - Detail Indication:Contact dermatitis due to poison levon Start:24-Sep-2014 Instruction Type:Patient Education Patient Instructions Indication:Contact dermatitis due to poison levon Start:24-Sep-2014 Instruction Type:Provider Instructions for Treatment Patient Instructions Indication:Physical exam, routine Start:29-May-2013 Instruction Type:Provider Instructions for Treatment Patient Instructions Indication:Fatigue Start:05-May-2013 Instruction Type:Provider Instructions for Treatment Patient Instructions Indication:Allergic conjunctivitis of right eye Start:02-Aug-2012 Instruction Type:Provider Instructions for Treatment Patient Instructions Indication:Eye pain Start:02-Aug-2012 Instruction Type:Provider Instructions for Treatment Patient Instructions Indication:GERD (gastroesophageal reflux disease) Start:18-Mar-2012 Instruction Type:Provider Instructions for Treatment Additional Source Comments FOR RECORDS PERTAINING TO PATIENTS WHO ARE OR HAVE BEEN ENROLLED IN A CHEMICAL DEPENDENCY/SUBSTANCEABUSE PROGRAM, SOME INFORMATION MAY BE OMITTED. This clinical summary was aggregated from multiple sources. Caution should be exercised in using it in the provision of clinical care. This summary normalizes information from multiple sources, and as a consequence, information in this document may materially change the coding, format and clinical context of patient data. In addition, data may be omitted in some cases. CLINICAL DECISIONS SHOULD BE BASED ON THE PRIMARY CLINICAL RECORDS. [employer] [facility]. provides no warranty or guarantee of the accuracy or completeness of information in this document.
== END | disposition home or self-care (01) ==
LOC: PSN 06:58
PROVIDERS: PCP Internal Medicine; Referring Provider Internal Medicine Cardiovascular Disease; Visit Provider Internal Medicine Cardiovascular Disease
DX: R00.1 Bradycardia, unspecified (principal)
CPT/HCPCS: 93225; 93226

== ENCOUNTER → 2023-03-04 | Outpatient (CLI) | payer OTHER, SELFPAY ==
--- OUTSIDE RECORDS SUMMARY | 2023-03-04 09:04 | XMS RPT_ITS | CCD ---
Author Name Unknown Address [address] [place] [address] Organization [facility] Care Team Providers Care Film Librarian Name Role Phone Mumtaz Lamar Unavailable Clare [...] 08-Jun-2011 End : 18-Mar-2012 Inactive bifidobacterium animalis [id number] unt / lactobacillus acidophilus [id number] unt oral capsule (1 source) End: 05-05-2013 [...] (Body Mass Index) 28.16 kg/m2 Hilary Mumtaz [facility] Work Phone: 08-28-2016 11:02-0400 Body Temperature 97.2 [degF] Hilary Mumtaz [facility] Work Phone: 08-28-2016 11:02-0400 Body weight 80.34 kg Hilary Mumtaz [facility] Work Phone: 08-28-2016 11:02-0400 BP Diastolic 80 mm[Hg] Hilary Mumtaz [facility] Work Phone: Encounters Encounter Date Encounter Type Care Provider Facility Start: 09-15-2016 End: 09-15-2016 Annotation/Addendum Hilary Bach Care Team Coordinator Scheduler al Medicine Start: 08-28-2016 End: 08-28-2016 Office outpatient visit 15 minutes Hilary [facility] Start: 05-15-2016 End: 05-15-2016 Office outpatient visit 25 minutes Hilary [facility] Start: 03-11-2016 End: 03-11-2016 Office outpatient visit 15 minutes Hilary [facility] Start: 06-25-2015 End: 06-25-2015 Office outpatient visit 15 minutes Hilary [facility] Start: 02-25-2015 End: 02-25-2015 Phone Encounter Hilary Bach Care Team Coordinator Scheduler al Medicine Start: 11-07-2014 End: 11-07-2014 Phone Encounter Hilary Bach Care Team Coordinator Scheduler al Medicine Start: 11-05-2014 End: 11-05-2014 Office [...] 07-03-2009 End: 07-03-2009 Historical Summary Hilary Bach Care Team Coordinator Scheduler al Medicine Start: 07-03-2009 End: 07-03-2009 Patient encounter procedure Hilary [facility] Start: 05-01-2009 End: 05-01-2009 Annotation/Addendum Hilary Bach Care Team Coordinator Scheduler al Medicine Start: 04-17-2009 End: 04-18-2009 Patient encounter procedure Hilary Ciesa [facility] Start: 10-29-2008 End: 10-29-2008 Office outpatient visit 15 minutes Hilary Pandya [facility] Start: 10-09-2008 End: 10-09-2008 Patient encounter procedure Hilary [facility] Start: 10-18-2007 End: 07-09-2008 Patient encounter procedure Hilary [facility] Start: 10-06-2007 End: 10-06-2007 Phone Encounter Hilary Pandya [facility] Care Team Coordinator Scheduler al Medicine Start: 10-03-2007 End: 10-03-2007 Patient encounter procedure Hilary [facility] Start: 06-07-2006 End: 06-07-2006 Patient encounter procedure Hilary Pandya [facility] Start: 04-08-2006 End: 04-08-2006 Office outpatient visit 25 minutes Hilary [facility] Start: 11-11-2005 End: 11-11-2005 Historical Summary Hilary Pandya [facility] Care Team Coordinator Scheduler al Medicine Procedures Date Procedure Procedure Detail Performing Clinician Start: 07-06-2018 End: 07-06-2018 Pelvic (Non ) Comments: See Note; NOTES: [facility] Imaging Services [address] [place] [address] Pelvic (Non ) MR#: [id number] Acct: [id number] Name: HOLLY HAMEED Rep #: [id number] : 1970 F 47 From: Terry Quintero MD PCP: Hilary Pandya NP Status: REG CLI Study: Pelvic (Non ) Date of Exam: 07/06/18 Exam# [id number] Ordering Dr: Екатерина Short BROKERAGE BRANCH MANAGER-C STUDY: ULTRASOUND OF THE FEMALE PELVIS - [...] support , CC: RICKY Pandya; RICKY Short Frit Mixer And Burner: Signed Candelaria Carrasco Work Phone: Start: 07-06-2018 End: 07-06-2018 Transvaginal Non- Comments: See Note; NOTES: [facility] Imaging Services [address] [place] [address] Transvaginal Non- MR#: [id number] Acct: [id number] Name: HOLLY HAMEED Rep #: [id number] : 1970 F 47 From: Terry Quintero MD PCP: Hilary Pandya NP Status: REG CLI Study: Transvaginal Non- Date of Exam: 07/06/18 Exam# [id number] Ordering Dr: Екатерина Short BROKERAGE BRANCH MANAGER-C STUDY: ULTRASOUND OF THE FEMALE PELVIS - [...] support , CC: RICKY Pandya; RICKY Short Frit Mixer And Burner: Signed Candelaria Carrasco Work Phone: Start: 04-27-2018 End: 04-27-2018 Massage Therapy Evaluation Comments: See Note; NOTES: [facility] [address] [place] [address]. [address] [place] [address] / REHABILITATION SERVICES INITIAL EVALUATION MR#: [id number] Acct: [id number] Name: HOLLY HAMEED Rep #: [id number] : 1970 47 From: Lyla Waller Referring Dr.: Hilary Pandya NP Status: REG RCR Insurance: [facility] SELF PAY INSURANCE Massage Therapy Evaluation: [...] Waller > 04/27/18 0653 CC: Hilary Pandya BROKERAGE BRANCH MANAGER; RICKY Short JM Signed Hilary Pandya Start: 02-10-2018 End: 02-10-2018 Spring Coiling Machine Setter Office Visit Report Comments: See Note; NOTES: [facility] [address] [place] [address] OFFICE VISIT Date of Service: 06/11/17 MR#: [id number] Acct: [id number] Name: HOLLY HAMEED Rep #: [id number] : 1970 Provider: RICKY Short Age/Sex: 46/F Location: [facility] Status: Signed with Addenda ADDENDUM by RICKY [...] information given. RTO 3 months Екатерина Short CASE RESOLUTION SPECIALIST Orders Orders: Medications New: 02/10/18 0907 <Electronically signed by Екатерина HOFFMAN> Date Екатерина Short cc: * Signed Intake Vital Signs06/11/17 Height 5 ft 6.5 in 06/11/17 Weight: 176 lb 8 oz 06/11/17 Body Mass Index (BMI) 28.0 06/11/17 Blood Pressure 118/66 Intake Visit Reasons: Annual Distribution Operation Supervisor Required: No Is patient in pain?: No [...] Past Pregnancies Del. DateName GA/Weeks Outcome Route [facility] WeighInfant GeLabor LgtAnesthesiDel LocatProvider FOB t n [...] of abnormal mammogram: no Physical therapist at [facility] Female Reproductive History Last Menstral Period: [...] alert, oriented to person, oriented to place [place] Head: normal to inspection Neck Neck: normal [...] information given. RTO 3 months Екатерина Short CASE RESOLUTION SPECIALIST Orders Orders: Medications New: Coding Level of [...] 01-27-2018 Discharge Summary Comments: See Note; NOTES: [facility] Medical Records Department [address] [place] [address] Discharge Summary 01/27/18 1304 MR#: [id number] Acct: [id number] Name: HOLLY HAMEED Rep #: [id number] : 1970 47 From: Lyla Waller PCP: Mumtaz GARCÍA, Hilary Status: REG RCR Y Location: [facility] Therapy Discharge Summary: Initial Evaluation: 04/06/2017 Diagnosis: Right trapezius strain No. of Visits: 7 of 10 Date of last visit: 12/28/2017 Goals: Decreased trapezius pain Decreased stress This patient is being discharged from our care at the [facility]. Thank you, Lyla Waller, T 01/27/18 1306 <Electronically signed by Lyla Waller > Date Lyla Waller Cosigner Signature (if applicable): Date CC: Lyla Waller; Hilary Pandya NP Signed Hilary Pandya Start: 10-12-2017 End: 10-12-2017 Spring Coiling Machine Setter Office Visit Report Comments: See Note; NOTES: [facility] [address] [place] [address] OFFICE VISIT Date of Service: 10/12/17 MR#: [id number] Acct: [id number] Name: HOLLY HAMEED Rep #: [id number] : 1970 Provider: RICKY Short Age/Sex: 46/F Location: [facility] Status: Signed Intake Vital Signs10/12/17 Height 5 ft 6.5 in 10/12/17 Weight: 175 lb 10/12/17 Body Mass Index (BMI) 27.8 10/12/17 Blood Pressure 108/74 Intake Visit Reasons: Chela SIERRA Follow Up Distribution Operation Supervisor Required: No Is patient in pain?: No [...] 07-29-2017 Downtime Report Comments: See Note; NOTES: [facility] Medical Records Department [address] [place] [address] Downtime Report MR#: [id number] Acct: [id number] Name: HOLLY HAMEED Rep #: [id number] : 1970 46 From: El Thomas PCP: Hilary Pandya NP Status: REG RCR This patient was seen during an EMR downtime July 12, 2017 - July 19, 2017. This patient may have a combination of paper and electronic documentation or all paper documentation. All documentation is viewable within the e-chart portion of [employer] for each patient visit. Hilary Angeliasandrabria Start: 06-23-2017 End: 06-24-2017 SCREENING MAMM (CAD), BILAT Comments: See Note; NOTES: [facility] Imaging Services [address] [place] [address] SCREENING MAMM (CAD), BILAT MR#: [id number] Acct: [id number] Name: HOLLY HAMEED Rep #: [id number] : 1970 F 46 From: Jamal Bruce MD PCP: Hilary Pandya NP Status: REG CLI Study: SCREENING MAMM (CAD), BILAT Date of Exam: 06/23/17 Exam# [id number] Ordering Dr: Екатерина Short BROKERAGE BRANCH MANAGER-C MAMMOGRAPHY - BILATERAL SCREENING REASON FOR EXAM: [...] delay biopsy of a clinically suspicious abnormality. [id number] Electronically Signed: Jamal Bruce MD at 8:08 EDT Tel [phone], Service support , CC: Hilary Pandya NP; RICKY Short Frit Mixer And Burner: Signed Candelaria Carrasco Work Phone: Start: 06-11-2017 End: 06-11-2017 Spring Coiling Machine Setter Office Visit Report Comments: See Note; NOTES: [facility] [address] [place] [address] OFFICE VISIT Date of Service: 06/11/17 MR#: [id number] Acct: [id number] Name: HOLLY HAMEED Rep #: [id number] : 1970 Provider: RICKY Short Age/Sex: 46/F Location: [facility] Status: Signed Intake Vital Signs06/11/17 Height 5 ft 6.5 in 06/11/17 Weight: 176 lb 8 oz 06/11/17 Body Mass Index (BMI) 28.0 06/11/17 Blood Pressure 118/66 Intake Visit Reasons: Annual Distribution Operation Supervisor Required: No Is patient in pain?: No [...] Past Pregnancies Del. DateName GA/Weeks Outcome Route [facility] WeighInfant GeLabor LgtAnesthesiDel LocatProvider FOB t n [...] of abnormal mammogram: no Physical therapist at [facility] Female Reproductive History Last Menstral Period: [...] alert, oriented to person, oriented to place [facility] Head: normal to inspection Neck Neck: normal [...] information given. RTO 3 months Екатерина Short CASE RESOLUTION SPECIALIST Orders Orders: Medications New: Coding Level of [...] Massage Therapy Evaluation Comments: See Note; NOTES: [facility] [address] [place] [address]. [address] [place] [address] Fax REHABILITATION SERVICES INITIAL EVALUATION MR#: [id number] Acct: [id number] Name: HOLLY HAMEED Rep #: [id number] : 1970 46 From: Lyla Waller Referring Dr.: Hilary Pandya NP Status: REG RCR Insurance: [facility] SELF PAY INSURANCE Massage Therapy Evaluation: Evaluatoin Date:04/06/17 The patient is a 46 y.o. female, referred to [facility] by Hilary Pandya, with a diagnosis of [...] 01-28-2017 Discharge Summary Comments: See Note; NOTES: [facility] Medical Records Department [address] [place] [address] Discharge Summary 01/28/17 0753 MR#: [id number] Acct: [id number] Name: YOLIEESTEVANHOLLY Valentino Rep #: [id number] : 1970 46 From: Lyla Waller PCP: Clare Choi DO Status: REG RCR Y Location: [facility] Massage Therapy Discharge Summary: This patient was seen for massotherapy evaluation on: 09/15/2016 Diagnosis: Right Trapezius Strain The patient had 5 sessions of massotherapy. The goals for treatment were met. SHe reported decreased muscle tension, trapezius pain as well as decreased stress. At this time I am discharging the patient from our care at the [facility] 01/28/17 0757 <Electronically signed by Lyla Waller > Date Lyla Waller Cosigner Signature (if applicable): Date CC: Lyla Waller; Clare Choi DO Signed Hilary Mitchellbria Start: 11-30-2016 End: 11-30-2016 Massage Therapy Evaluation Comments: See Note; NOTES: [facility] [address] [place] [address]. [address] [place] [address] Fax REHABILITATION SERVICES INITIAL EVALUATION MR#: [id number] Acct: [id number] Name: HOLLY HAMEED Rep #: [id number] : 1970 45 From: Lyla Waller Referring Dr.: OUT OF TOWN DOCTOR Status: REG RCR Insurance: [facility] Massage Therapy Evaluation: Initial Evaluation Date: [...] MAMM (CAD), BILAT Comments: See Note; NOTES: [facility] Imaging Services [address] [place] [address] [address] 4d SCREENING MAMM (CAD), BILAT MR#: [id number] Acct: [id number] Name: HOLLY HAMEED Rep #: [id number] : 1970 F 45 From: Jamal Bruce MD PCP: Clare Choi DO Status: REG CLI Study: SCREENING MAMM (CAD), BILAT Date of Exam: 05/18/16 Exam# [id number] Ordering Dr: Hilary Pandya MAMMOGRAPHY - BILATERAL [...] delay biopsy of a clinically suspicious abnormality. [id number] Electronically Signed: Jamal Bruce MD at 10:48 EDT Tel [phone], Service support [phone], CC: Hilary Pandya; Clare Choi DO Frit Mixer And Burner: Signed Hilary Pandya Work Phone: Start: 05-15-2016 End: 05-15-2016 Chest WITH Contrast Comments: See Note; NOTES: [facility] Imaging Services [address] [place] [address] [address]dana 4d Chest WITH Contrast MR#: [id number] Acct: [id number] Name: HOLLY HAMEED Rep #: [id number] : 1970 F 45 From: Jamal Bruce MD PCP: Hilary Pandya Status: REG CLI Study: Chest WITH Contrast Date of Exam: 05/15/16 Exam# [id number] Ordering Dr: Hilary Pandya STUDY: CT CHEST [...] Jamal Bruce MD at 14:55 EDT Tel [phone], Service support [phone], CC: Hilary Pandya Frit Mixer And Burner: Signed Hilary Pandya Work Phone: Start: 05-15-2016 End: 05-15-2016 Soft Tissue Neck WITH Contrast Comments: See Note; NOTES: [facility] Imaging Services [address] [place] [address] [address] Soft Tissue Neck WITH Contrast MR#: [id number] Acct: [id number] Name: HOLLY HAMEED Rep #: [id number] : 1970 F 45 From: Jamal Bruce MD PCP: Hilary Pandya Status: REG CLI Study: Soft Tissue Neck WITH Contrast Date of Exam: 05/15/16 Exam# [id number] Ordering Dr: Hilary Pandya STUDY: CT SOFT [...] region. Normal bilateral parotid glands. Normal bilateral show design supervisor spaces. Normal bilateral parapharyngeal spaces. Normal bilateral [...] Jamal Bruce MD at 14:57 EDT Tel [phone], Service support [phone], CC: Hilary Pandya Frit Mixer And Burner: Signed Hilary Mitchella Work Phone: Start: 10-30-2014 End: 10-31-2014 Bilat Scrn Digital AND CAD Comments: See Note; NOTES: [facility] Imaging Services [address] [place] [address] Breast Imaging Report MR#: [id number] Acct: [id number] Name: HOLLY HAMEED Rep #: [id number] : 1970 F 43 From: Jamal Bruce MD PCP: Clare Choi DO Status: REG CLI Study: Biljoana Angelesn Digital AND CAD Date of Exam: 10/30/14 Exam# [id number] Ordering Dr: Clare Choi DO MAMMOGRAPHY - [...] Jamal Bruce MD at 9:06 EDT Tel [phone], Service support [phone], CC: Clare Choi DO Frit Mixer And Burner: Signed Clare Choi Work Phone: Start: 02-07-2013 End: 03-16-2013 PT Discharge Summary Comments: See Note; NOTES: [facility] [address] [place], [place] [address] Fax REHABILITATION SERVICES DISCHARGE SUMMARY MR#: [id number] Acct: [id number] Name: HOLLY HAMEED Rep #: [id number] : 1970 42 From: Cher Zaman Referring [...] the patient from our care at the [facility] facility. Lyla Zaman LMT T: NTS JOB: [id number] <Electronically signed by Cher Zaman > 02/07/13 0736 CC: * Signed Clare Choi Work Phone: Plan of Treatment Date Care Activity Detail Author Start: 08-28-2016 Provider Instructions for Treatment [facility] Work Phone: Start: 05-15-2016 Provider Instructions for Treatment Follow up - Make appt after diagnostic tests [facility] Work Phone: Start: 05-15-2016 Comprehensive metabolic panel Metabolic Panel, Comprehensive (54140) [facility] Work Phone: Start: 05-15-2016 Blood count complete auto&auto difrntl wbc CBC, Platelets & Auto Diff (24183) [facility] Work Phone: Start: 05-15-2016 TSH Qn TSH (71763) [facility] Care Team Coordinator Scheduler al Medicine Work Phone: Start: 03-11-2016 Patient Education Cellulitis: eye [facility] Coord[facility] Work Phone: Start: 03-11-2016 Procedure Education Eprescribed prescriptions (G8553) [facility] Work Phone: Start: 03-11-2016 Provider Instructions for Treatment Follow up if no improvement or if symptoms worsen [facility] Work Phone: Start: 11-05-2014 Cytp cerv/vag auto thin layer prep mnl screen Thin prep Pap (15606) (no STD testing) [facility] Work Phone: Start: 11-05-2014 Patient Education Pap Test (Cervical Smear) *: pap smear [facility] Work Phone: Start: 11-05-2014 Provider Instructions for Treatment [facility] Work Phone: Start: 09-24-2014 Patient Education Itching: itching [facility] Coord[facility] Work Phone: Start: 09-24-2014 Procedure Education Eprescribed prescriptions (G8553) [facility] Work Phone: Start: 05-05-2013 Patient Education Fatigue: fatigue [facility] Coord[facility] Work Phone: Start: 05-05-2013 Lipid panel LIPID PANEL (82304) [facility] Coord[facility] Work Phone: Start: 05-05-2013 25 hydroxy includes fractions if performed Vitamin D Hydroxy (96733) [facility] Work Phone: Start: 05-05-2013 Cobalamin (Vitamin B12) [Mass/Vol] VITAMIN B-12 (CYANOCOBALAMIN) (77789) [facility] Work Phone: Start: 05-05-2013 Antibody abraham-monroy eb virus early antigen ea EBV Panel (35271) [facility] Work Phone: Start: 05-05-2013 Free T3 [Mass/Vol] T3, FREE (TRIDOTHYRONINE) (08220) [facility] Work Phone: Start: 05-05-2013 Free T4 [Mass/Vol] T4, FREE (THYROXINE) (89214) [facility] Work Phone: Start: 05-05-2013 TSH Qn TSH (32595) [facility] Coord[facility] Work Phone: Start: 05-05-2013 Urnls dip stick/tablet reagent auto microscopy URINALYSIS, W/ MICRO (31575) [facility] Work Phone: Start: 05-05-2013 Blood count manual cell count each CBC WITH MANUAL DIFF (37650) [facility] Work Phone: Start: 05-05-2013 Comprehensive metabolic panel METABOLIC PANEL, COMPREHENSIVE (86807) [facility] Work Phone: Start: 08-02-2012 Patient Education Allergies: Controlling Your Environment: allergen [facility] Work Phone: Start: 03-18-2012 Patient Education Heartburn *: gerd [facility] Coordinator [facility] Work Phone: Start: 03-18-2012 Free T4 [Mass/Vol] T4, FREE (THYROXINE) (53803) [facility] Work Phone: Start: 03-18-2012 Free T3 [Mass/Vol] T3, FREE (TRIDOTHYRONINE) (34435) [facility] Work Phone: Start: 03-18-2012 TSH Qn TSH (73076) [facility] Coord[facility] Work Phone: Start: 07-03-2009 Provider Instructions for Treatment Solu Medrol Injection/ Education [facility] Work Phone: Start: 04-17-2009 Comprehensive metabolic panel METABOLIC PANEL, COMPREHENSIVE (89125) [facility] Work Phone: Start: 04-17-2009 Blood count manual cell count each CBC WITH MANUAL DIFF (03900) [facility] Work Phone: Start: 04-17-2009 Assay of lipase Lipase (86572) [facility] Coordinator [facility] Work Phone: Start: 04-17-2009 Amylase [Catalytic activity/Vol] Amylase (49150) [facility] Work Phone: Start: 10-09-2008 Provider Instructions for Treatment [facility] Work Phone: Start: 06-07-2006 Provider Instructions for Treatment FOLLOW UP IN 6 WEEKS [facility] Work Phone: Start: 06-07-2006 Urnls dip stick/tablet rgnt auto w/o microscopy URINALYSIS W/O MICRO (15406) [facility] Work Phone: Start: 06-07-2006 TSH Qn TSH (19292) [facility] Team Coordinator [facility] Work Phone: Start: 06-07-2006 Blood count manual cell count each CBC WITH MANUAL DIFF (82243) [facility] Work Phone: Start: 06-07-2006 Comprehensive metabolic panel METABOLIC PANEL, COMPREHENSIVE (98246) [facility] Work Phone: Start: 04-08-2006 [...] Date Payer Category Payer Policy ID Unknown [facility] Social History Date Type Detail Facility [employer]affe[employer] [...] BE BASED ON THE PRIMARY CLINICAL RECORDS. [employer] [facility]. provides no warranty or guarantee of the accuracy or completeness of information in this document.
[2023-03-04 10:10] LABS: Thyroid Stim Hormone (TSH) 1.14 uIU/mL (0.358-3.74)
== END | disposition home or self-care (01) ==
LOC: LAB 08:26
PROVIDERS: PCP Internal Medicine; Referring Provider Internal Medicine Cardiovascular Disease; Visit Provider Internal Medicine Cardiovascular Disease
DX: R00.1 Bradycardia, unspecified (principal)
CPT/HCPCS: 36415; 84443

== ENCOUNTER → 2023-08-31 | Outpatient (CLI) | payer OTHER, SELFPAY ==
--- NOTE | 2023-08-31 07:20 | BI_ITS ---
MAMMOGRAPHY - BILATERAL SCREENING REASON FOR EXAM: Female, 52 years old. Routine annual screening examination. PERTINENT HISTORY: Non-contributory. TECHNIQUE: Digital bilateral breast bhavna (3D mammographic acquisition) in the CC and MLO projections. 2-D mediolateral oblique (MLO) and craniocaudad (CC) views of both breasts were obtained. CAD: Full Field Digital Mammography with Computer Added Detection was performed. COMPARISON: Comparison is made with prior study of May 13, 2022 and March 03, 2021. FINDINGS: Breast Composition: The breasts are heterogeneously dense, which may obscure small masses. There are no dominant masses or suspicious calcifications. No other significant abnormalities are identified. There has been no significant change since the prior study. BI/SCRN MAMM (CAD)W/BHAVNA BILAT IMPRESSION: Stable bilateral screening mammogram. Yearly follow-up mammogram recommended. (A) ASSESSMENT CATEGORY: BIRADS Category 1: Negative. A letter regarding these results will be sent to the patient by the facility within 30 days. Approximately 10% of breast cancers are not detected by mammography. A normal mammogram should not delay biopsy of a clinically suspicious abnormality. [id number] Electronically Signed: Jamal Bruce MD at 8:19 EDT ,
== END | disposition home or self-care (01) ==
PROVIDERS: PCP Internal Medicine
DX: Z12.31 Encounter for screening mammogram for malignant neoplasm of breast (principal)
CPT/HCPCS: 77063; 77067

== ENCOUNTER → 2023-11-30 | Outpatient (CLI) | payer OTHER, SELFPAY ==
[2023-11-30 08:52] LABS: Estradiol 89.3 pg/mL
[2023-12-01 08:13] LABS: PROGESTERONE 1.3 ng/mL (.)
== END | disposition home or self-care (01) ==
LOC: LAB 07:00
PROVIDERS: PCP Internal Medicine; Referring Provider Nurse Practitioner Family; Visit Provider Nurse Practitioner Family
DX: N95.1 Menopausal and female climacteric states (principal); R53.83 Other fatigue
CPT/HCPCS: 36415; 82670; 84144; 84403

== ENCOUNTER → 2024-06-27 | Outpatient (CLI) | payer OTHER, SELFPAY ==
[2024-06-27 12:21] LABS: Estradiol 45.8 pg/mL
[2024-06-28 04:07] LABS: PROGESTERONE 3.8 ng/mL (.)
== END | disposition home or self-care (01) ==
LOC: LAB.FUTURE 10:51 → LAB 10:52
PROVIDERS: PCP Internal Medicine; Referring Provider Nurse Practitioner Family; Visit Provider Nurse Practitioner Family
DX: N95.1 Menopausal and female climacteric states (principal); R53.83 Other fatigue
CPT/HCPCS: 36415; 82670; 84144; 84403

== ENCOUNTER → 2024-11-16 | Outpatient (CLI) | payer OTHER, SELFPAY ==
--- NOTE | 2024-11-16 15:15 | BI_ITS ---
EXAM: SCRN MAMM (CAD)W/BHAVNA BILAT DATE: 11/16/2024 CLINICAL HISTORY: F, Age 53 y/o , SCREENING MAMMOGRAM TECHNIQUE: Procedure Code: [id number] Modality: MG Procedure: SCRN MAMM (CAD)W/BHAVNA BILAT COMPARISON: Prior exam(s) dated 08/31/2023, 05/13/2022, 03/03/2021. FINDINGS: TISSUE DENSITY: The breasts are heterogeneously dense, which may obscure small masses. The mammogram demonstrates that the patient has dense breasts. Supplemental screening with whole breast ultrasound or MRI may be considered for further evaluation. Bilateral Breast Mammographic Findings: No significant masses, calcifications or other abnormalities are identified. BI/SCRN MAMM (CAD)W/BHAVNA BILAT IMPRESSION: There is no mammographic evidence of malignancy. OVERALL FINAL ASSESSMENT BI-RADS 1: NEGATIVE. RECOMMENDATION: Routine annual follow-up in 1 Year Additional Recommendation none A letter with findings and recommendations will be mailed to the patient. Reading Location: [id number]
== END | disposition home or self-care (01) ==
LOC: OPBI 15:06
PROVIDERS: PCP Internal Medicine; Referring Provider Internal Medicine; Visit Provider Internal Medicine
DX: Z12.31 Encounter for screening mammogram for malignant neoplasm of breast (principal)
CPT/HCPCS: 77063; 77067